=== PATIENT | female | born 1965 | race Caucasian/White ===

== ENCOUNTER → 2017-09-25 | Outpatient (CLI) | payer OTHER ==
--- NOTE | 2017-09-25 22:21 | Diagnostic Imaging Report ---
Renal Scan Reason for exam: Hydronephrosis; chronic kidney disease. 52 F with cervical cancer dx in 2017 s/p chemoXRT. 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 Bilateral PCN's recently placed. Radiopharmaceutical: Tc-99m MAG3 10.5 mCi Report: After administration of the radiopharmaceutical, dynamic images of the kidneys were obtained through 40 minutes. The PCN catheters were open for the initial 10 minutes post injection of tracer and then clamped for the remainder of the study. LEFT KIDNEY: Perfusion is prompt. The left kidney has a reniform shape with irregular contours. Extraction of tracer from the blood pool is normal. Clearance of tracer from the renal parenchyma begins promptly but is not complete by the end of the study. The pelvicaliceal system is not dilated. No increased pooling of tracer is seen in the pelvicalyceal system. The PCN catheter drains the kidney adequately over the first 10 minutes. The pelvicalyceal system drains freely after the PCN is clamped. No stasis of tracer is seen in the left ureter. RIGHT KIDNEY: Perfusion is prompt. The kidney has a reniform shape with slightly irregular contours. Extraction of tracer from the blood pool is normal. Clearance of tracer from the renal parenchyma begins promptly but is not complete by the end of the study. The pelvicaliceal system is not dilated although the calices are mildly prominent. The PCN catheter drains the kidney adequately over the initial 10 minutes. Tracer in the pelvicalyceal system accumulates continuously during the 30 minutes following clamping of the PCN. No stasis of tracer is seen in the right ureter. DIFFERENTIAL RENAL FUNCTION: Left kidney 48% and right kidney 52% (normal 43-57%). Impression: 1. The left kidney has evidence of medical renal disease. Some scarring is present evidenced by the irregular contour. No hydronephrosis is present. The PCN adequately drains the pelvicalyceal system. After the PCN is clamped, drainage of tracer in the renal collecting system is unimpeded. 2. The right kidney has evidence of medical renal disease as well as some scarring. No hydronephrosis is present although the calices are very mildly prominent. The PCN adequately drains the pelvicalyceal system over the initial 10 minutes. After the PCN is clamped, tracer continuously accumulates in the pelvicalyceal system, suggestive of obstruction at the UPJ. Tracer is seen in the right ureter although the ureter does not appear dilated. Consider Lasix washout renal scan with PCN clamped prior to removing the PCN catheter. 3. The differential renal function is preserved although both kidneys show mild scarring and medical renal disease. Signed by: Dr. Grecia Faith M.D. on 09/25/2017 10:17 PM
== END ==
LOC: NM 11:30
PROVIDERS: ATTEND Urology
CPT/HCPCS: 78707; A9562

== ENCOUNTER 2017-10-11 11:27 | Inpatient (IN) | payer OTHER ==
[2017-10-10 11:23] LABS: EOSINOPHILS # (AUTO) 0.5 (0.0-0.4); EOSINOPHILS % 22.4 % (0.0-6.0); HEMATOCRIT 29.4 % (34.2-44.1); HEMOGLOBIN 9.2 g/dL (12.0-16.0); LYMPHOCYTES # (AUTO) 0.9 (1.0-3.2); LYMPHOCYTES % 46.3 % (18.0-39.1); MEAN CORPUSCULAR HEMOGLOBIN 27.1 pg (28-32); MEAN CORPUSCULAR HGB CONC 31.3 g/dL (31-35); MEAN CORPUSCULAR VOLUME 86.7 fL (81-99); MONOCYTES # (AUTO) 0.4 (0.2-0.8); MONOCYTES % 19.4 % (4.4-11.3); NEUTROPHILS # (AUTO) 0.2 (2.1-6.9); NEUTROPHILS % 9.9 % (38.7-80.0); PLATELET COUNT 299 x10e3/uL (140-360); RED BLOOD COUNT 3.39 x10e6/uL (3.6-5.1); RED CELL DISTRIBUTION WIDTH 15.9 % (11.7-14.4)
[2017-10-10 11:40] LABS: ANION GAP 11.4 mmol/L (8-16); BLOOD UREA NITROGEN 11 mg/dL (7-26); BUN/CREATININE RATIO 15 (6-25); CALCIUM 9.3 mg/dL (8.4-10.2); CARBON DIOXIDE 26 mmol/L (22-29); CHLORIDE 104 mmol/L (98-107); CREATININE, SERUM 0.73 mg/dL (0.57-1.11); EST GLOMERULAR FILTRATION RATE > 60 ML/MIN (60-); GLUCOSE 118 mg/dL (74-118); POTASSIUM 3.4 mmol/L (3.5-5.1); SODIUM 138 mmol/L (136-145)
--- NOTE | 2017-10-10 12:06 | Diagnostic Imaging Report ---
PROCEDURE: X-RAY CHEST, TWO VIEWS COMPARISON: None. INDICATIONS: PRE-OP. SHORTNESS OF BREATH FINDINGS: Right internal jugular central venous port catheter tip projects over the low superior vena cava. Lungs are well-inflated and without focal airspace consolidation, pleural effusion, or pneumothorax. Questionable nodular opacity projecting to the right of the vertebral column on the frontal radiograph and over the T11 vertebral body on the lateral radiograph. Mild tortuosity of the thoracic aorta with an otherwise normal cardiomediastinal contour. No acute osseous abnormality. CONCLUSION: No acute thoracic abnormality. Questionable nodular opacity in the medial aspect of the right lower lobe. Comparison with prior chest radiographs, if available, would be useful. If no prior studies are available, short term followup chest radiograph (1-2 months) is suggested. Alternatively, CT scan of the chest may be performed. Dictated by: Mahesh Henry M.D. on 10/10/2017 at 12:08 Electronically approved by: Mahesh Henry M.D. on 10/10/2017 at 12:08
[2017-10-10 14:48] LABS: EOSINOPHILS % (MANUAL) 20 % (0-7); LYMPHOCYTES % (MANUAL) 50 % (19-48); MONOCYTES % (MANUAL) 14 % (3.4-9.0); NEUTROPHILS % (MANUAL) 11 % (40-74)
[2017-10-10 14:49] LABS: ANISOCYTOSIS SLIGHT; HYPOCHROMASIA SLIGHT; PLATELET ESTIMATE ADEQUATE; PLATELET MORPHOLOGY COMMENT FEW LARGE; RBC MORPHOLOGY COMMENT NORMAL
[~2017-10-11] VITALS: Ht 175.3 cm; Wt 67.6 kg
[~2017-10-11 11:27] MED LIST: GABAPENTIN300 MG PO; MORPHINE SULFAT60 M2 PO; NORCO 10-325 T1 EACH PO; PROAIR HFA INH8.5 GM INH; ZOFRAN ODT8 MG PO
--- OUTSIDE RECORDS SUMMARY | 2017-10-11 11:30 | XMS REPORT ---
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 Allergies, Adverse Reactions, Alerts This patient has no known allergies or adverse reactions. Medications This patient has no known medications. Encounters Start Date/Time End Date/Time Encounter Type Admission Type Attending [facility] Care Department Encounter ID 2017-09-03 00:01:00 2017-09-03 00:01:00 Outpatient [facility] [id number] 2017-08-26 14:22:00 2017-08-26 14:22:00 Inpatient [facility] [id number] 2017-03-06 00:01:00 2017-03-06 00:01:00 Outpatient [facility] [id number] 2017-02-03 00:01:00 2017-02-03 00:01:00 Outpatient [facility] [id number] 2016-11-21 16:05:00 2016-11-21 16:05:00 Inpatient [facility] [id number] Results Test Description Test Time Test Comments Text Results Atomic Results Result Comments CHEST 2 VIEWS 2017-10-10 12:08:00 [place] [address] Patient Name: MAHIN WEBER MR #: [id number] : 1965 Age/Sex: 52/F Req #: [id number] Adm Physician: Ordered by: KEN ALMAGUER MD Report #: [id number] Location: OR Room/Bed: Procedure: [id number] DX/CHEST 2 VIEWS Exam Date: 10/10/17 Exam Time: 1145 REPORT STATUS: Signed PROCEDURE: X-RAY CHEST, TWO VIEWS COMPARISON: None. INDICATIONS: PRE-OP. SHORTNESS OF BREATH FINDINGS: Right internal jugular central venous port catheter tip projects over the low superior vena cava. Lungs are well-inflated and without focal airspace consolidation, pleural effusion, or pneumothorax. Questionable nodular opacity projecting to the right of the vertebral column on the frontal radiograph and over the T11 vertebral body on the lateral radiograph. Mild tortuosity of the thoracic aorta with an otherwise normal cardiomediastinal contour. No acute osseous abnormality. CONCLUSION: No acute thoracic abnormality. Questionable nodular opacity in the medial aspect of the right lower lobe. Comparison with prior chest radiographs, if available, would be useful. If no prior studies are available, short term followup chest radiograph (1-2 months) is suggested. Alternatively, CT scan of the chest may be performed. Dictated by: Pam Caballero M.D. on 10/10/2017 at 12:08 Electronically approved by: Pam Caballero M.D. on 10/10/2017 at 12:08 Dictated By: PAM CABALLERO MD 1208 Transcribed By: RADHA on 10/10/17 1208 COPY TO: KEN ALMAGUER MD RBC, Crossmatch 2 2017-01-15 04:47:00 Product 1 Code (test code=PRODCODE1) E0336 Unit 1 ID (test code=UNITID1) [id number] Unit 1 ABO (test code=UNITABO1) O Unit 1 Rh (test code=UNITRH1) POS Unit 1 Interp (test code=UNITINTERP1) Compatible Unit 1 Status (test code=UNITSTAT1) RE Product 2 Code (test code=PRODCODE2) E0336 Unit 2 ID (test code=UNITID2) [id number] Unit 2 ABO (test code=UNITABO2) O Unit 2 Rh (test code=UNITRH2) POS Unit 2 Interp (test code=UNITINTERP2) Compatible Unit 2 Status (test code=UNITSTAT2) RE US GUIDANCE [id number] 08:49:12ULTRASOUND GUIDANCECLINICAL HISTORY : C53.9: MALIGNANT NEOPLASM OF CERVIX UTERI, UNSPECIFIEDComments: Intraoperative ultrasound services were provided during tandemplacement. A radiologist was not present for the procedure. A total of9 images were acquired by the nanotechnology engineering technologist.IMPRESSION: Ultrasound services provided. Please see separate operative report fordetailed findings.LOCATION: V53Ewaevqcz Screen - Rdyfzfdy4350-25-45 08:10:00* Test Item Value Reference Range Comments Antibody Screen (test code=ABSCR) Negative Partial Thromboplastin [id number] 08:09:00* Test Item Value Reference Range Comments aPTT (test code=PTT) 32.20 seconds 24.39-37.25 Blood Type and [id number] 08:07:00* Test Item Value Reference Range Comments ABO type (test code=ABO) O Rh Type (test code=RH) Positive Comprehensive Metabolic Jekww7969-94-28 07:38:00* Test Item Value Reference Range Comments Sodium (test code=NA) 141 mmol/L 135-145 Potassium (test code=K) 4.9 mmol/L 3.5-5.1 Chloride (test code=CL) 107 mmol/L 98-105 Carbon Dioxide (test code=CO2) 26 mmol/L 22-29 Glucose (test code=GLU) 97 mg/dL 70-115 Blood Urea Nitrogen (test code=BUN) 11 mg/dL 6-20 Creatinine (test code=CREAT) 0.7 mg/dL 0.5-0.9 Calcium (test code=CA) 9.2 mg/dL 8.3-10.5 Prot Total (test code=TP) 6.5 g/dL 6.4-8.3 Albumin (test code=ALB) 4.1 g/dL 3.5-5.2 A/G Ratio (test code=AGRATIO) 1.7 Ratio Globulin (test code=GLOB) 2.4 2.9-3.1 Bili Total (test code=TBIL) 0.2 mg/dL 0.1-0.9 Alk Phos (test code=APHOS) 69 U/L 35-104 AST (test code=AST) 13 U/L 1-32 ALT (test code=ALT) 14 U/L 1-33 BUN/Creatinine Ratio (test code=BCRATIO) 15.7 Anion Gap (test code=AGAP) 8 mmol/L 7-16 Estimated GFR (test code=GFR) >60 mL/min/1.73m2 eGFR (estimated Glomerular Filtration Rate) is an estimated value,calculated from the patient's serum creatinine using the MDRD equation.It is NOT the patient's actual GFR. The eGFR provides a more clinicallyuseful measure of kidney disease than serum creatinine alone.This calculation takes sex and race into account, if the informationis provided. If the race is not provided, and the patient isAfrican- Sudanese, multiply by 1.212. If sex is not provided, and thepatient is female, multiply by 0.742. Results for patients <18 years ofage have not been validated by the MDRD study and should be interpretedwith caution.eGFR Result Interpretation:eGFR > or=60 is in the Normal RangeeGFR < 60 may mean kidney diseaseeGFR < 15 may mean kidney failureRanges recommended by the National Kidney Foundation,http://nkdep.nih.gov Jdvvcagvwb6263-06-27 07:35:00* Test Item Value Reference Range Comments Phosphorus (test code=PO4) 4.6 mg/dL 2.70-4.50 Magnesium, Yvwve1050-42-30 07:35:00* Test Item Value Reference Range Comments Magnesium (test code=MG) 2.3 mg/dL 1.7-2.5 CBC with Zqxoowqeniua5620-76-40 07:30:00* Test Item Value Reference Range Comments WBC (test code=WBC) 6.4 K/cumm 4.4-10.5 RBC (test code=RBC) 2.93 M/cumm 3.75-5.20 Hemoglobin (test code=HGB) 10.9 gm/dL 12.2-14.8 Hematocrit (test code=HCT) 31.6 % 36.5-44.4 MCV (test code=MCV) 107.6 fL 80-100 MCH (test code=MCH) 37.1 pg 27.0-32.5 MCHC (test code=MCHC) 34.5 g/dL 32.0-37.5 RDW (test code=RDW) 15.1 % 11.5-14.5 Platelet Count (test code=PLTCT) 361 K/cumm 140-440 MPV (test code=MPV) 7.8 fL Diff Method (test code=DIFFM) Auto Neutrophil (test code=NEUT) 73.6 % 36-70 Lymphocyte (test code=LYMPH) 10.9 % 12-44 Monocyte (test code=MONO) 7.4 % 0-11 Eosinophil (test code=EOS) 7.5 % 0-7 Basophil (test code=BASO) 0.6 % 0-2 Neutro Abs (test code=ANEUT) 4.7 K/cumm 1.6-7.4 Lymph Abs (test code=ALYMPH) 0.7 K/cumm 0.5-4.6 [place] Abs (test code=AMONO) 0.5 K/cumm 0.0-1.2 Eos Abs (test code=AEOS) 0.48 K/cumm 0.00-0.74 Baso Abs (test code=ABASO) 0.0 K/cumm 0.00-0.21 Macrocytosis (test code=MACRO) Slight US GUIDANCE [id number] 09:06:54Ultrasound Assistance:LOCATION: [id number]: C53.9: MALIGNANT NEOPLASM OF CERVIX UTERI, UNSPECIFIEDDISCUSSION: Ultrasound assistance was provided. Intraprocedural images wereinterpreted by the performing physician. Please refer to the referringphysician's procedure note/operative report for complete detail. [id number] 08:44:00* Test Item Value Reference Range Comments Phosphorus (test code=PO4) 4.2 mg/dL 2.70-4.50 Magnesium, Lmfat2016-13-58 08:44:00* Test Item Value Reference Range Comments Magnesium (test code=MG) 2.3 mg/dL 1.7-2.5 Antibody Screen - [id number] 08:21:00* Test Item Value Reference Range Comments Antibody Screen (test code=ABSCR) Negative Blood Type and [id number] 08:03:00* Test Item Value Reference Range Comments ABO type (test code=ABO) O Rh Type (test code=RH) Positive CBC with [id number] 07:30:00* Test Item Value Reference Range Comments WBC (test code=WBC) 4.2 K/cumm 4.4-10.5 RBC (test code=RBC) 3.10 M/cumm 3.75-5.20 Hemoglobin (test code=HGB) 10.8 gm/dL 12.2-14.8 Hematocrit (test code=HCT) 33.4 % 36.5-44.4 MCV (test code=MCV) 107.8 fL 80-100 MCH (test code=MCH) 34.9 pg 27.0-32.5 MCHC (test code=MCHC) 32.4 g/dL 32.0-37.5 RDW (test code=RDW) 15.1 % 11.5-14.5 Platelet Count (test code=PLTCT) 372 K/cumm 140-440 MPV (test code=MPV) 7.5 fL Diff Method (test code=DIFFM) Auto Neutrophil (test code=NEUT) 67.6 % 36-70 Lymphocyte (test code=LYMPH) 17.0 % 12-44 Monocyte (test code=MONO) 8.2 % 0-11 Eosinophil (test code=EOS) 6.1 % 0-7 Basophil (test code=BASO) 1.0 % 0-2 Neutro Abs (test code=ANEUT) 2.8 K/cumm 1.6-7.4 Lymph Abs (test code=ALYMPH) 0.7 K/cumm 0.5-4.6 [place] Abs (test code=AMONO) 0.3 K/cumm 0.0-1.2 Eos Abs (test code=AEOS) 0.26 K/cumm 0.00-0.74 Baso Abs (test code=ABASO) 0.0 K/cumm 0.00-0.21 Macrocytosis (test code=MACRO) Slight Partial Thromboplastin [id number] 07:27:00* Test Item Value Reference Range Comments aPTT (test code=PTT) 35.00 seconds 24.39-37.25 Comprehensive Metabolic [id number] 07:15:00* Test Item Value Reference Range Comments Sodium (test code=NA) 141 mmol/L 135-145 Potassium (test code=K) 4.2 mmol/L 3.5-5.1 Chloride (test code=CL) 109 mmol/L 98-105 Carbon Dioxide (test code=CO2) 25 mmol/L 22-29 Glucose (test code=GLU) 101 mg/dL 70-115 Blood Urea Nitrogen (test code=BUN) 10 mg/dL 6-20 Creatinine (test code=CREAT) 0.7 mg/dL 0.5-0.9 Calcium (test code=CA) 8.9 mg/dL 8.3-10.5 Prot Total (test code=TP) 6.3 g/dL 6.4-8.3 Albumin (test code=ALB) 3.8 g/dL 3.5-5.2 A/G Ratio (test code=AGRATIO) 1.5 Ratio Globulin (test code=GLOB) 2.5 2.9-3.1 Bili Total (test code=TBIL) 0.2 mg/dL 0.1-0.9 Alk Phos (test code=APHOS) 66 U/L 35-104 AST (test code=AST) 13 U/L 1-32 ALT (test code=ALT) 13 U/L 1-33 BUN/Creatinine Ratio (test code=BCRATIO) 14.3 Anion Gap (test code=AGAP) 7 mmol/L 7-16 Estimated GFR (test code=GFR) >60 mL/min/1.73m2 eGFR (estimated Glomerular Filtration Rate) is an estimated value,calculated from the patient's serum creatinine using the MDRD equation.It is NOT the patient's actual GFR. The eGFR provides a more clinicallyuseful measure of kidney disease than serum creatinine alone.This calculation takes sex and race into account, if the informationis provided. If the race is not provided, and the patient isAfrican- Sudanese, multiply by 1.212. If sex is not provided, and thepatient is female, multiply by 0.742. Results for patients <18 years ofage have not been validated by the MDRD study and should be interpretedwith caution.eGFR Result Interpretation:eGFR > or=60 is in the Normal RangeeGFR < 60 may mean kidney diseaseeGFR < 15 may mean kidney failureRanges recommended by the National Kidney Foundation,http://nkdep.nih.gov RBC, Crossmatch [id number] 00:58:00* Test Item Value Reference Range Comments Product 1 Code (test code=PRODCODE1) E4543 Unit 1 ID (test code=UNITID1) [id number] Unit 1 ABO (test code=UNITABO1) O Unit 1 Rh (test code=UNITRH1) POS Unit 1 Interp (test code=UNITINTERP1) Compatible Unit 1 Status (test code=UNITSTAT1) RE Product 2 Code (test code=PRODCODE2) E0336 Unit 2 ID (test code=UNITID2) [id number] Unit 2 ABO (test code=UNITABO2) O Unit 2 Rh (test code=UNITRH2) POS Unit 2 Interp (test code=UNITINTERP2) Compatible Unit 2 Status (test code=UNITSTAT2) RE US GUIDANCE [id number] 11:24:42EXAM: ULTRASOUND GUIDANCECLINICAL HISTORY: Cervical cancerTECHNIQUE: Ultrasound guidance was provided for tandem placement.FINDINGS: Ultrasound guidance was provided for tandem placement.IMPRESSION: Ultrasound guidance was provided for tandem placement.LOCATION: R05Ynije Type and [id number] 08:33:00* Test Item Value Reference Range Comments ABO type (test code=ABO) O Rh Type (test code=RH) Positive Antibody Screen - [id number] 08:33:00* Test Item Value Reference Range Comments Antibody Screen (test code=ABSCR) Negative Partial Thromboplastin [id number] 07:48:00* Test Item Value Reference Range Comments aPTT (test code=PTT) 31.90 seconds 24.39-37.25 CBC with Uefdzzrnuljc4204-01-32 07:36:00* Test Item Value Reference Range Comments WBC (test code=WBC) 3.8 K/cumm 4.4-10.5 RBC (test code=RBC) 2.78 M/cumm 3.75-5.20 Hemoglobin (test code=HGB) 9.8 gm/dL 12.2-14.8 Hematocrit (test code=HCT) 29.5 % 36.5-44.4 MCV (test code=MCV) 106.2 fL 80-100 MCH (test code=MCH) 35.4 pg 27.0-32.5 MCHC (test code=MCHC) 33.3 g/dL 32.0-37.5 RDW (test code=RDW) 15.1 % 11.5-14.5 Platelet Count (test code=PLTCT) 370 K/cumm 140-440 MPV (test code=MPV) 8.1 fL Diff Method (test code=DIFFM) Auto Neutrophil (test code=NEUT) 70.8 % 36-70 Lymphocyte (test code=LYMPH) 16.5 % 12-44 Monocyte (test code=MONO) 8.0 % 0-11 Eosinophil (test code=EOS) 4.2 % 0-7 Basophil (test code=BASO) 0.6 % 0-2 Neutro Abs (test code=ANEUT) 2.7 K/cumm 1.6-7.4 Lymph Abs (test code=ALYMPH) 0.6 K/cumm 0.5-4.6 [place] Abs (test code=AMONO) 0.3 K/cumm 0.0-1.2 Eos Abs (test code=AEOS) 0.16 K/cumm 0.00-0.74 Baso Abs (test code=ABASO) 0.0 K/cumm 0.00-0.21 Macrocytosis (test code=MACRO) Slight Comprehensive Metabolic [id number] 07:22:00* Test Item Value Reference Range Comments Sodium (test code=NA) 140 mmol/L 135-145 Potassium (test code=K) 3.6 mmol/L 3.5-5.1 Chloride (test code=CL) 107 mmol/L 98-105 Carbon Dioxide (test code=CO2) 22 mmol/L 22-29 Glucose (test code=GLU) 99 mg/dL 70-115 Blood Urea Nitrogen (test code=BUN) 10 mg/dL 6-20 Creatinine (test code=CREAT) 0.6 mg/dL 0.5-0.9 Calcium (test code=CA) 9.1 mg/dL 8.3-10.5 Prot Total (test code=TP) 6.3 g/dL 6.4-8.3 Albumin (test code=ALB) 4.1 g/dL 3.5-5.2 A/G Ratio (test code=AGRATIO) 1.9 Ratio Globulin (test code=GLOB) 2.2 2.9-3.1 Bili Total (test code=TBIL) 0.2 mg/dL 0.1-0.9 Alk Phos (test code=APHOS) 69 U/L 35-104 AST (test code=AST) 15 U/L 1-32 ALT (test code=ALT) 14 U/L 1-33 BUN/Creatinine Ratio (test code=BCRATIO) 16.7 Anion Gap (test code=AGAP) 11 mmol/L 7-16 Estimated GFR (test code=GFR) >60 mL/min/1.73m2 eGFR (estimated Glomerular Filtration Rate) is an estimated value,calculated from the patient's serum creatinine using the MDRD equation.It is NOT the patient's actual GFR. The eGFR provides a more clinicallyuseful measure of kidney disease than serum creatinine alone.This calculation takes sex and race into account, if the informationis provided. If the race is not provided, and the patient isAfrican- Sudanese, multiply by 1.212. If sex is not provided, and thepatient is female, multiply by 0.742. Results for patients <18 years ofage have not been validated by the MDRD study and should be interpretedwith caution.eGFR Result Interpretation:eGFR > or=60 is in the Normal RangeeGFR < 60 may mean kidney diseaseeGFR < 15 may mean kidney failureRanges recommended by the National Kidney Foundation,http://nkdep.nih.gov Magnesium, Ppeth0984-43-47 07:21:00* Test Item Value Reference Range Comments Magnesium (test code=MG) 2.1 mg/dL 1.7-2.5 Ztplwebztj5768-82-27 07:21:00* Test Item Value Reference Range Comments Phosphorus (test code=PO4) 4.2 mg/dL 2.70-4.50 CBC with Jhomvjkgyinv7154-20-34 13:20:00* Test Item Value Reference Range Comments WBC (test code=WBC) 1.7 K/cumm 4.4-10.5 RBC (test code=RBC) 2.88 M/cumm 3.75-5.20 Hemoglobin (test code=HGB) 10.1 gm/dL 12.2-14.8 Hematocrit (test code=HCT) 31.5 % 36.5-44.4 MCV (test code=MCV) 109.5 fL 80-100 MCH (test code=MCH) 35.1 pg 27.0-32.5 MCHC (test code=MCHC) 32.0 g/dL 32.0-37.5 RDW (test code=RDW) 15.9 % 11.5-14.5 Platelet Count (test code=PLTCT) 337 K/cumm 140-440 MPV (test code=MPV) 9.3 fL Diff Method (test code=DIFFM) Manual Neutrophil (test code=NEUT) 47.8 % 36-70 Lymphocyte (test code=LYMPH) 32.5 % 12-44 Monocyte (test code=MONO) 12.3 % 0-11 Eosinophil (test code=EOS) 6.6 % 0-7 Basophil (test code=BASO) 0.8 % 0-2 Neutro Abs (test code=ANEUT) 0.8 K/cumm 1.6-7.4 Lymph Abs (test code=ALYMPH) 0.6 K/cumm 0.5-4.6 [place] Abs (test code=AMONO) 0.2 K/cumm 0.0-1.2 Eos Abs (test code=AEOS) 0.11 K/cumm 0.00-0.74 Baso Abs (test code=ABASO) 0.0 K/cumm 0.00-0.21 RBC Morphology (test code=RBCMRPH) Moderate Hypochromia Moderate Macrocytosis WBC Morphology (test code=WBCMRPH) Moderate Toxic Granulation Platelet Est (test code=PLTEST) Normal Platelet on Smear Antibody Screen - Bxtksybk3272-30-07 12:03:00* Test Item Value Reference Range Comments Antibody Screen (test code=ABSCR) Negative Tddpvvlazv3442-73-95 11:45:00* Test Item Value Reference Range Comments Phosphorus (test code=PO4) 3.9 mg/dL 2.70-4.50 Magnesium, Zqype7512-91-79 11:45:00* Test Item Value Reference Range Comments Magnesium (test code=MG) 2.3 mg/dL 1.7-2.5 Comprehensive Metabolic [id number] 11:45:00* Test Item Value Reference Range Comments Sodium (test code=NA) 140 mmol/L 135-145 Potassium (test code=K) 4.5 mmol/L 3.5-5.1 Chloride (test code=CL) 104 mmol/L 98-105 Carbon Dioxide (test code=CO2) 27 mmol/L 22-29 Glucose (test code=GLU) 89 mg/dL 70-115 Blood Urea Nitrogen (test code=BUN) 9 mg/dL 6-20 Creatinine (test code=CREAT) 0.7 mg/dL 0.5-0.9 Calcium (test code=CA) 9.1 mg/dL 8.3-10.5 Prot Total (test code=TP) 6.5 g/dL 6.4-8.3 Albumin (test code=ALB) 4.1 g/dL 3.5-5.2 A/G Ratio (test code=AGRATIO) 1.7 Ratio Globulin (test code=GLOB) 2.4 2.9-3.1 Bili Total (test code=TBIL) 0.2 mg/dL 0.1-0.9 Alk Phos (test code=APHOS) 64 U/L 35-104 AST (test code=AST) 12 U/L 1-32 ALT (test code=ALT) 11 U/L 1-33 BUN/Creatinine Ratio (test code=BCRATIO) 12.9 Anion Gap (test code=AGAP) 9 mmol/L 7-16 Estimated GFR (test code=GFR) >60 mL/min/1.73m2 eGFR (estimated Glomerular Filtration Rate) is an estimated value,calculated from the patient's serum creatinine using the MDRD equation.It is NOT the patient's actual GFR. The eGFR provides a more clinicallyuseful measure of kidney disease than serum creatinine alone.This calculation takes sex and race into account, if the informationis provided. If the race is not provided, and the patient isAfrican- Sudanese, multiply by 1.212. If sex is not provided, and thepatient is female, multiply by 0.742. Results for patients <18 years ofage have not been validated by the MDRD study and should be interpretedwith caution.eGFR Result Interpretation:eGFR > or=60 is in the Normal RangeeGFR < 60 may mean kidney diseaseeGFR < 15 may mean kidney failureRanges recommended by the National Kidney Foundation,http://nkdep.nih.gov Blood Type and [id number] 11:28:00* Test Item Value Reference Range Comments ABO type (test code=ABO) O Rh Type (test code=RH) Positive Prothrombin [id number] 11:16:00* Test Item Value Reference Range Comments PT (test code=PT) 10.90 seconds 9.78-13.35 INR (test code=INR) 0.96 Ratio 0.6-1.2 Partial Thromboplastin [id number] 11:16:00* Test Item Value Reference Range Comments aPTT (test code=PTT) 32.10 seconds 24.39-37.25 US GUIDANCE [id number] 12:36:36EXAM: ULTRASOUND GUIDANCECLINICAL HISTORY: Cervical cancerTECHNIQUE: Ultrasound guidance was provided for tandem placement.FINDINGS: Ultrasound guidance was provided for tandem placement.IMPRESSION: Ultrasound guidance was provided for tandem placement.LOCATION: [facility] with Izkeefevjafa9151-11-50 10:50:00* Test Item Value Reference Range Comments WBC (test code=WBC) 1.6 K/cumm 4.4-10.5 RBC (test code=RBC) 2.89 M/cumm 3.75-5.20 Hemoglobin (test code=HGB) 10.3 gm/dL 12.2-14.8 Hematocrit (test code=HCT) 31.8 % 36.5-44.4 MCV (test code=MCV) 110.1 fL 80-100 MCH (test code=MCH) 35.7 pg 27.0-32.5 MCHC (test code=MCHC) 32.5 g/dL 32.0-37.5 RDW (test code=RDW) 15.8 % 11.5-14.5 Platelet Count (test code=PLTCT) 296 K/cumm 140-440 MPV (test code=MPV) 9.1 fL Diff Method (test code=DIFFM) Manual Neutrophil (test code=NEUT) 40.6 % 36-70 Lymphocyte (test code=LYMPH) 30.8 % 12-44 Monocyte (test code=MONO) 14.0 % 0-11 Eosinophil (test code=EOS) 14.3 % 0-7 Basophil (test code=BASO) 0.3 % 0-2 Neutro Abs (test code=ANEUT) 0.6 K/cumm 1.6-7.4 Lymph Abs (test code=ALYMPH) 0.5 K/cumm 0.5-4.6 [place] Abs (test code=AMONO) 0.2 K/cumm 0.0-1.2 Eos Abs (test code=AEOS) 0.22 K/cumm 0.00-0.74 Baso Abs (test code=ABASO) 0.0 K/cumm 0.00-0.21 RBC Morphology (test code=RBCMRPH) Moderate Hypochromia Platelet Est (test code=PLTEST) Normal Platelet on Smear [id number] 08:47:00* Test Item Value Reference Range Comments Potassium (test code=K) 4.5 mmol/L 3.5-5.1 Partial Thromboplastin [id number] 08:02:00* Test Item Value Reference Range Comments aPTT (test code=PTT) 47.90 seconds 24.39-37.25 Antibody Screen - Huvtlaaf7919-33-11 07:40:00* Test Item Value Reference Range Comments Antibody Screen (test code=ABSCR) Negative Blood Type and [id number] 07:39:00* Test Item Value Reference Range Comments ABO type (test code=ABO) O Rh Type (test code=RH) Positive Comprehensive Metabolic [id number] 07:34:00* Test Item Value Reference Range Comments Sodium (test code=NA) 139 mmol/L 135-145 Potassium (test code=K) 5.4 mmol/L 3.5-5.1 HEMOLYZED Chloride (test code=CL) 107 mmol/L 98-105 Carbon Dioxide (test code=CO2) 23 mmol/L 22-29 Glucose (test code=GLU) 102 mg/dL 70-115 Blood Urea Nitrogen (test code=BUN) 9 mg/dL 6-20 Creatinine (test code=CREAT) 0.6 mg/dL 0.5-0.9 Calcium (test code=CA) 8.9 mg/dL 8.3-10.5 Prot Total (test code=TP) 6.9 g/dL 6.4-8.3 Albumin (test code=ALB) 4.0 g/dL 3.5-5.2 A/G Ratio (test code=AGRATIO) 1.4 Ratio Globulin (test code=GLOB) 2.9 2.9-3.1 Bili Total (test code=TBIL) 0.2 mg/dL 0.1-0.9 Alk Phos (test code=APHOS) 62 U/L 35-104 AST (test code=AST) 29 U/L 1-32 HEMOLYZED ALT (test code=ALT) 12 U/L 1-33 BUN/Creatinine Ratio (test code=BCRATIO) 15.0 Anion Gap (test code=AGAP) 9 mmol/L 7-16 Estimated GFR (test code=GFR) >60 mL/min/1.73m2 eGFR (estimated Glomerular Filtration Rate) is an estimated value,calculated from the patient's serum creatinine using the MDRD equation.It is NOT the patient's actual GFR. The eGFR provides a more clinicallyuseful measure of kidney disease than serum creatinine alone.This calculation takes sex and race into account, if the informationis provided. If the race is not provided, and the patient isAfrican- Sudanese, multiply by 1.212. If sex is not provided, and thepatient is female, multiply by 0.742. Results for patients <18 years ofage have not been validated by the MDRD study and should be interpretedwith caution.eGFR Result Interpretation:eGFR > or=60 is in the Normal RangeeGFR < 60 may mean kidney diseaseeGFR < 15 may mean kidney failureRanges recommended by the National Kidney Foundation,http://nkdep.nih.gov XR CHEST 1 [id number] 06:36:13Chest, one viewLOCATION CODE: R 16HISTORY: PreoperativeCOMPARISON: NoneFINDINGS:A right chemotherapy port is noted with tip in the SVC.The heart size isnormal and the lungs are clear. There is no evidence of pleuraleffusion, pulmonary edema or patchy lobar consolidation.IMPRESSION: 1. No acute cardiopulmonary disease RBC, Crossmatch 00:09:00* Test Item Value Reference Range Comments Product 1 Code (test code=PRODCODE1) E4533 Unit 1 ID (test code=UNITID1) [id number] Unit 1 ABO (test code=UNITABO1) O Unit 1 Rh (test code=UNITRH1) POS Unit 1 Interp (test code=UNITINTERP1) Compatible Unit 1 Status (test code=UNITSTAT1) RE Product 2 Code (test code=PRODCODE2) E4533 Unit 2 ID (test code=UNITID2) [id number] Unit 2 ABO (test code=UNITABO2) O Unit 2 Rh (test code=UNITRH2) POS Unit 2 Interp (test code=UNITINTERP2) Compatible Unit 2 Status (test code=UNITSTAT2) RE Antibody Screen - [id number] 13:27:00* Test Item Value Reference Range Comments Antibody Screen (test code=ABSCR) Negative CBC with [id number] 13:14:00* Test Item Value Reference Range Comments WBC (test code=WBC) 1.5 K/cumm 4.4-10.5 RBC (test code=RBC) 2.81 M/cumm 3.75-5.20 Hemoglobin (test code=HGB) 10.1 gm/dL 12.2-14.8 Hematocrit (test code=HCT) 30.0 % 36.5-44.4 MCV (test code=MCV) 106.8 fL 80-100 MCH (test code=MCH) 35.9 pg 27.0-32.5 MCHC (test code=MCHC) 33.6 g/dL 32.0-37.5 RDW (test code=RDW) 14.9 % 11.5-14.5 Platelet Count (test code=PLTCT) 296 K/cumm 140-440 MPV (test code=MPV) 8.4 fL Diff Method (test code=DIFFM) Manual Neutrophil (test code=NEUT) 48.8 % 36-70 Lymphocyte (test code=LYMPH) 28.9 % 12-44 Monocyte (test code=MONO) 8.8 % 0-11 Eosinophil (test code=EOS) 13.2 % 0-7 Basophil (test code=BASO) 0.2 % 0-2 Neutro Abs (test code=ANEUT) 0.7 K/cumm 1.6-7.4 Lymph Abs (test code=ALYMPH) 0.4 K/cumm 0.5-4.6 [place] Abs (test code=AMONO) 0.1 K/cumm 0.0-1.2 Eos Abs (test code=AEOS) 0.19 K/cumm 0.00-0.74 Baso Abs (test code=ABASO) 0.0 K/cumm 0.00-0.21 RBC Morphology (test code=RBCMRPH) Moderate Hypochromia Platelet Est (test code=PLTEST) Normal Platelet on Smear Blood Type and [id number] 13:11:00* Test Item Value Reference Range Comments ABO type (test code=ABO) O Rh Type (test code=RH) Positive [id number] 12:10:00* Test Item Value Reference Range Comments Phosphorus (test code=PO4) 3.3 mg/dL 2.70-4.50 Magnesium, [id number] 12:10:00* Test Item Value Reference Range Comments Magnesium (test code=MG) 2.1 mg/dL 1.7-2.5 Comprehensive Metabolic [id number] 12:10:00* Test Item Value Reference Range Comments Sodium (test code=NA) 144 mmol/L 135-145 Potassium (test code=K) 4.4 mmol/L 3.5-5.1 Chloride (test code=CL) 107 mmol/L 98-105 Carbon Dioxide (test code=CO2) 27 mmol/L 22-29 Glucose (test code=GLU) 107 mg/dL 70-115 Blood Urea Nitrogen (test code=BUN) 9 mg/dL 6-20 Creatinine (test code=CREAT) 0.6 mg/dL 0.5-0.9 Calcium (test code=CA) 9.3 mg/dL 8.3-10.5 Prot Total (test code=TP) 6.4 g/dL 6.4-8.3 Albumin (test code=ALB) 4.0 g/dL 3.5-5.2 A/G Ratio (test code=AGRATIO) 1.7 Ratio Globulin (test code=GLOB) 2.4 2.9-3.1 Bili Total (test code=TBIL) <0.1 mg/dL 0.1-0.9 Alk Phos (test code=APHOS) 67 U/L 35-104 AST (test code=AST) 11 U/L 1-32 ALT (test code=ALT) 10 U/L 1-33 BUN/Creatinine Ratio (test code=BCRATIO) 15.0 Anion Gap (test code=AGAP) 10 mmol/L 7-16 Estimated GFR (test code=GFR) >60 mL/min/1.73m2 eGFR (estimated Glomerular Filtration Rate) is an estimated value,calculated from the patient's serum creatinine using the MDRD equation.It is NOT the patient's actual GFR. The eGFR provides a more clinicallyuseful measure of kidney disease than serum creatinine alone.This calculation takes sex and race into account, if the informationis provided. If the race is not provided, and the patient isAfrican- Sudanese, multiply by 1.212. If sex is not provided, and thepatient is female, multiply by 0.742. Results for patients <18 years ofage have not been validated by the MDRD study and should be interpretedwith caution.eGFR Result Interpretation:eGFR > or=60 is in the Normal RangeeGFR < 60 may mean kidney diseaseeGFR < 15 may mean kidney failureRanges recommended by the National Kidney Foundation,http://nkdep.nih.gov Partial Thromboplastin [id number] 12:09:00* Test Item Value Reference Range Comments aPTT (test code=PTT) 33.10 seconds 24.39-37.25 Prothrombin [id number] 12:09:00* Test Item Value Reference Range Comments PT (test code=PT) 10.60 seconds 9.78-13.35 INR (test code=INR) 0.94 Ratio 0.6-1.2 RENAL SCAN W/FLOW FUNCTION [place] [address] Patient Name: MAHIN WEBER MR #: [id number] : 1965 Age/Sex: 52/F Req #: [id number] Adm Physician: Ordered by: KNE ALMAGUER MD Report #: [id number] Location: [place] Room/Bed: Procedure: [id number] NM/RENAL SCAN W/FLOW FUNCTION Exam Date: 09/25/17 Exam Time: 1200 REPORT STATUS: Signed Renal Scan Reason for exam: Hydronephrosis; chronic kidney disease. 52 F with cervical cancer dx in 2017 s/p chemoXRT. 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 Bilateral PCN's recently placed. Radiopharmaceutical: Tc-99m MAG3 10.5 mCi Report: After administration of the radiopharmaceutical, dynamic images of the kidneys were obtained through 40 minutes. The PCN catheters were open for the initial 10 minutes post injection of tracer and then clamped for the remainder of the study. LEFT KIDNEY: Perfusion is prompt. The left kidney has a reniform shape with irregular contours. Extraction of tracer from the blood pool is normal. Clearance of tracer from the renal parenchyma begins promptly but is not complete by the end of the study. The pelvicaliceal system is not dilated. No increased pooling of tracer is seen in the pelvicalyceal system. The PCN catheter drains the kidney adequately over the first 10 minutes. The pelvicalyceal system drains freely after the PCN is clamped. No stasis of tracer is seen in the left ureter. RIGHT KIDNEY: Perfusion is prompt. The kidney has a reniform shape with slightly irregular contours. Extraction of tracer from the blood pool is normal. Clearance of tracer from the renal parenchyma begins promptly but is not complete by the end of the study. The pelvicaliceal system is not dilated although the calices are mildly prominent. The PCN catheter drains the kidney adequately over the initial 10 minutes. Tracer in the pelvicalyceal system accumulates continuously during the 30 minutes following clamping of the PCN. No stasis of tracer is seen in the right ureter. DIFFERENTIAL RENAL FUNCTION: Left kidney 48% and right kidney 52% (normal 43-57%). Impression: 1. The left kidney has evidence of medical renal disease. Some scarring is present evidenced by the irregular contour. No hydronephrosis is present. The PCN adequately drains the pelvicalyceal system. After the PCN is clamped, drainage of tracer in the renal collecting system is unimpeded. 2. The right kidney has evidence of medical renal disease as well as some scarring. No hydronephrosis is present although the calices are very mildly prominent. The PCN adequately drains the pelvicalyceal system over the initial 10 minutes. After the PCN is clamped, tracer continuously accumulates in the pelvicalyceal system, suggestive of obstruction at the UPJ. Tracer is seen in the right ureter although the ureter does not appear dilated. Consider Lasix washout renal scan with PCN clamped prior to removing the PCN catheter. 3. The differential renal function is preserved although both kidneys show mild scarring and medical renal disease. Signed by: Dr. Juan Carlos Faith M.D. on 09/25/2017 10:17 PM Dictated By: JUAN CARLOS FAITH MD 16 Transcribed By: MELVIN on 09/25/172216 COPY TO: KEN ALMAGUER MD
--- OUTSIDE RECORDS SUMMARY | 2017-10-11 11:30 | XMS REPORT | Clinical Summary ---
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 Disp. Refills Start End Date Status Date ondansetron (ZOFRAN) 8 MG Take 8 mg by mouth every Active tablet 12 (twelve) hours as needed for nausea or vomiting. ondansetron ODT Take 8 mg by mouth every 0 08/14/19 Active (ZOFRAN-ODT) 8 MG 8 (eight) hours as 18 disintegrating tablet needed. HYDROcodone-acetaminophen TAKE 1 TABLET EVERY 4 0 08/14/19 Active (NORCO) 10-325 mg per HOURS NEEDED FOR PAIN 18 tablet morPHINE (MS CONTIN) 60 Take 60 mg by mouth every 0 08/17/19 Active MG 12 hr tablet 12 (twelve) hours. 18 PREMARIN 0.625 mg/gram 06/04/19 08/23/19 Discontin vaginal cream 18 18 ued phenazopyridine Take 100 mg by mouth 3 06/04/19 08/23/19 Discontin (PYRIDIUM) 100 MG tablet (three) times a day as 18 18 ued needed. PROCTOSOL HC 2.5 % rectal 06/20/19 08/06/19 Discontin cream 18 18 ued promethazine (PHENERGAN) 05/09/19 08/06/19 Discontin 25 MG tablet 18 18 ued ciprofloxacin HCl (CIPRO) Take 2.5 tablets (250 mg 25 tablet 0 08/14/19 100 MG tablet total) by mouth 2 (two) 18 18 times a day for 5 days. 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 Montse Pavel 08/12/2017 Telephone Urology Tony Kimball MD 08/05/2017 [facility] General Surgery Tang Dang Acute renal failure, - Encounter MD Alonzo unspecified acute renal 08/09/2017 Erika La MD failure type (Primary Dx); Hyperkalemia; Anemia, unspecified type; Obstructive uropathy; Respiratory insufficiency; Bilateral hydronephrosis; Malignant neoplasm of cervix, unspecified site; Urinary tract infection without hematuria, site unspecified after 10/10/2016 Social History Tobacco Use Types Packs/Day Years Used Date Current Some Day Smoker Smokeless Tobacco: Never Used Comments: Pt smokes 1-2 cigs weekly Alcohol Use Drinks/Week oz/Week Comments No Sex Assigned at Date Recorded Not on file Last Filed Vital Signs Vital Sign Reading Time Taken Blood Pressure 110/74 09/07/2017 12:00 PM CDT Pulse 89 09/07/2017 12:00 PM CDT Temperature 37 C (98.6 F) 09/07/2017 12:00 PM CDT Respiratory Rate 19 09/07/2017 12:00 PM CDT Oxygen Saturation 99% 09/07/2017 12:00 PM CDT Inhaled Oxygen - - Concentration Weight 71.2 kg (157 lb) 08/22/2017 9:44 AM CDT Height 175.3 cm (5' 9") 09/07/2017 9:56 AM CDT Body Mass Index 23.18 08/22/2017 9:44 AM CDT Plan of Treatment Health Maintenance Due Date Last Done Comments CERVICAL CANCER SCREENING 1985 BREAST CANCER SCREENING 2014 COLON CANCER SCREENING 2014 SHINGRIX VACCINE (#1) 2014 INFLUENZA VACCINE 12/04/2017 Implants Implanted Type Area Director International Device Expiration Model / Identifier Date Serial / Lot Catheter Uretl Ultrathane 8.5fr Surgical N/A: N/A COOK 02/13/2020 [id number] / 25cm 6sp Mac-Loc Lkng Loop - Implants; INTERVENTIONAL / [id number] Expanders; RADIOLOGY [id number] Implanted: 08/06/2017 (Quantity not Extenders; on file) Surgical Wires Catheter Uretl Ultrathane 8.5fr Surgical N/A: N/A COOK 02/13/2020 [id number] / 25cm 6sp Mac-Loc Lkng Loop - Implants; INTERVENTIONAL / [id number] Expanders; RADIOLOGY [id number] Implanted: 08/06/2017 (Quantity not Extenders; on file) Surgical Wires Procedures Procedure Name Priority Date/Time Associated Diagnosis Comments [facility] ADDL 30 Routine 08/05/2017 Results for this MIN 4:14 PM CDT procedure are in the results section. [facility], E/M Routine 08/05/2017 Results for this 30-74 MINUTES 4:14 PM CDT procedure are in the results section. after 10/10/2016 Results * Potassium level (08/09/2017 3:02 PM) Component Value Ref Range Potassium 3.6 3.5 - 5.0 mEq/L Specimen Performing Laboratory Plasma specimen [facility] [address] [place] [address] * ECG 12 lead (08/09/2017 10:43 AM) Only the most recent of 3 results within the time period is included. Component Value Ref Range Ventricular rate 116 Atrial rate 116 VA interval 144 QRSD interval 76 QT interval 348 QTC interval 483 P axis 1 62 QRS axis 1 54 T wave axis 200 EKG impression Sinus tachycardia-Minimal voltage criteria for LVH, may be normal variant-ST & T wave abnormality, consider inferolateral ischemia-Abnormal ECG-In automated comparison with ECG of 07-AUG-2017 14:01,-T wave inversion now evident in Inferior leads-T wave inversion now evident in Anterior leads- Specimen Performing Laboratory [facility] MUSE [address] [facility] [facility] [address] * Estimated GFR (08/09/2017 6:10 AM) Only the most recent of 8 results within the time period is included. Component Value Ref Range GFR Non Af Amer 14 (A) mL/min/1.73 m2 GFR Af Amer 17 (A) mL/min/1.73 m2 Comment: Chronic kidney disease: <60 mL/min/1.73m2 Kidney failure: <15 mL/min/1.73m2 The estimated GFR is calculated from the IDMS-traceable Modification of Diet in Renal Disease Equation. The accuracy of the calculation is poor when the creatinine is normal. Calculated values >90 mL/min/1.73m2 are not reported. This equation has not been validated in children (<18 years), women, the elderly (>70 years), or ethnic groups other than Caucasians and Americans. Specimen Performing Laboratory Plasma specimen [facility] [address] [place] [address] * CBC with platelet and differential (08/09/2017 6:10 AM) Only the most recent of 5 results within the time period is included. Component Value Ref Range WBC 11.6 (H) 4.2 - 11.0 k/uL RBC 3.69 (L) 4.04 - 5.86 m/uL HGB 10.4 (L) 11.5 - 15.3 g/dL HCT 33.4 (L) 34.0 - 45.0 % MCV 90.5 80.0 - 98.0 fL MCH 28.2 27.0 - 34.0 pg MCHC 31.1 (L) 31.5 - 36.5 g/dL RDW - SD 54.5 (H) 37.0 - 51.0 fL MPV 9.2 7.4 - 10.4 fL Platelet count 380 150 - 400 k/uL Nucleated RBC 0.00 /100 WBC Neutrophils 80.5 (H) 36.0 - 66.0 % Lymphocytes 7.9 (L) 24.0 - 44.0 % Monocytes 7.2 (H) 0.0 - 6.0 % Eosinophils 3.2 0.0 - 6.0 % Basophils 0.5 0.0 - 1.2 % Immature granulocytes 0.7 0.0 - 1.0 % Specimen Performing Laboratory Blood [facility] [address] [place] [address] * Magnesium level (08/09/2017 6:10 AM) Only the most recent of 4 results within the time period is included. Component Value Ref Range Magnesium 1.10 (L) 1.60 - 2.40 mg/dL Specimen Performing Laboratory Plasma specimen [facility] [address] [place] [address] * Basic metabolic panel (08/09/2017 6:10 AM) Only the most recent of 5 results within the time period is included. Component Value Ref Range Sodium 139 135 - 150 mEq/L Potassium 2.8 (LL) 3.5 - 5.0 mEq/L Comment: Results called to and read back by __Ms Silcox on 3W by tmg 08/09/2017 09:40 Chloride 101 100 - 109 mEq/L CO2 30 24 - 32 mmol/L Anion gap 8 7 - 15 mEq/L Comment: Starting from August , anion gap calculation no longer incorporates potassium. Please note the change. BUN 37 (H) 7 - 18 mg/dL Creatinine 3.4 (H) 0.8 - 1.5 mg/dL Glucose 112 (H) 65 - 100 mg/dL Calcium 7.3 (L) 8.6 - 10.7 mg/dL Specimen Performing Laboratory Plasma specimen [facility] [address] [place] [address] * Phosphorus level (08/08/2017 6:25 AM) Only the most recent of 3 results within the time period is included. Component Value Ref Range Phosphorus 3.9 2.5 - 4.5 mg/dL Specimen Performing Laboratory Plasma specimen [facility] [address] [place] [address] * Ionized calcium (08/08/2017 6:25 AM) Only the most recent of 3 results within the time period is included. Component Value Ref Range pH 7.34 Ionized calcium 0.97 (L) 1.11 - 1.32 mmol/L Specimen Performing Laboratory Plasma specimen [facility] [address] [place] [address] * Comprehensive metabolic panel (08/08/2017 6:25 AM) Only the most recent of 3 results within the time period is included. Component Value Ref Range Sodium 140 135 - 150 mEq/L Potassium 3.7 3.5 - 5.0 mEq/L Chloride 102 100 - 109 mEq/L CO2 28 24 - 32 mmol/L Anion gap 10 7 - 15 mEq/L Comment: Starting from August , anion gap calculation no longer incorporates potassium. Please note the change. BUN 51 (H) 7 - 18 mg/dL Creatinine 5.3 (H) 0.8 - 1.5 mg/dL Glucose 109 (H) 65 - 100 mg/dL Calcium 7.3 (L) 8.6 - 10.7 mg/dL Protein 7.0 6.3 - 8.2 g/dL Albumin 2.8 (L) 3.2 - 5.0 g/dL A/G ratio 0.7 0.7 - 3.8 Alkaline phosphatase 76 30 - 120 U/L AST 11 (L) 15 - 37 U/L ALT 13 (L) 30 - 65 U/L Total bilirubin 0.3 0.2 - 1.2 mg/dL Specimen Performing Laboratory Plasma specimen [facility] [address] [place] [address] * XR Abdomen 1 Vw (08/07/2017 3:29 PM) Specimen Performing Laboratory [facility] [address] [place] [address] Narrative EXAMINATION:XR ABDOMEN 1 VW CLINICAL HISTORY:ABDOMINAL PAIN, CONSTIPATION COMPARISON:None. FINDINGS: There are bilateral nephrostomy catheters. There is gas in the colon. No dilated loops of small bowel are seen. There is no free air. IMPRESSION: As above [facility]-[id number] Procedure Note Interface, Radiology Results Incoming - 08/07/2017 3:41 PM CDT EXAMINATION: XR ABDOMEN 1 VW CLINICAL HISTORY: ABDOMINAL PAIN, CONSTIPATION COMPARISON: None. FINDINGS: There are bilateral nephrostomy catheters. There is gas in the colon. No dilated loops of small bowel are seen. There is no free air. IMPRESSION: As above [id number] * Myoglobin (08/07/2017 2:17 PM) Component Value Ref Range Myoglobin 80.0 9.0 - 82.5 ng/mL Specimen Performing Laboratory Plasma specimen [facility] [address] [place] [address] * CK-MB (08/07/2017 2:17 PM) Component Value Ref Range CK-MB 2.6 0.5 - 3.2 ng/mL Comment: As of Sep 03 2017, this test will no longer be available in [facility]. Specimen Performing Laboratory Plasma specimen [facility] [address] [facility] [place] [address] * Troponin (08/07/2017 2:17 PM) Component Value Ref Range Troponin 0.04 0.00 - 0.60 ng/mL Comment: 0.11 - 1.49 ng/ml May indicate increased risk of acute coronary syndrome. >=1.5 ng/ml Consistent with acute myocardial infarction. The diagnostic value of a single normal or non-diagnostic result is questionable. Serial samples at 2-6 hour intervals are required to rule out acute myocardial injury. Specimen Performing Laboratory Plasma specimen [facility] [address] [place] [address] [place] [address] * POC glucose (08/07/2017 1:51 PM) Only the most recent of 6 results within the time period is included. Component Value Ref Range POC glucose 177 (H) 65 - 100 mg/dL Comment: Meter ID: [id number] Label Rewinder: Elroy Weber Specimen Performing Laboratory [facility] [address] [place] [address] [place] [address] * Smear review (08/07/2017 5:22 AM) Only the most recent of 2 results within the time period is included. Component Value Ref Range Platelet slide review Increased (A) Anisocytosis slight Polychromasia slight Tear drop cells Occasional Schistocytes rare Specimen Performing Laboratory [facility] [address] [place] [address] * Transfuse RBC (08/07/2017 1:05 AM) Only the most recent of 5 results within the time period is included. * Sodium level, urine, random (08/06/2017 4:40 PM) Component Value Ref Range Sodium, urine, random 87 mEQ/L Specimen Performing Laboratory Urine - Urine, clean [facility] catch [address] [place] [address] * Creatinine level, urine, random (08/06/2017 4:40 PM) Component Value Ref Range Creatinine, urine, random 33 mg/dL Specimen Performing Laboratory Urine - Urine, clean [facility] catch [address] [place] [address] * IR Bilateral Nephrostomy Initial Placement (08/06/2017 12:52 PM) Specimen Performing Laboratory [facility] [id number] [place] [address] Narrative Examination:IR BILATERAL NEPHROSTOMY INITIAL PLACEMENT Clinical history:"bilateral hydronephrosis with renal failure" Comparison:There are no prior studies for comparison. Anesthesia:Lidocaine solution was injected into the involved tissues. Conscious sedation:After the risks and benefits of conscious sedation were discussed, midazolam and fentanyl were administered intravenously. Throughout the conscious sedation duration, the patient was continuously monitored by a registered nurse. The physician intraservice [id number] time with the patient was 40 minutes. Reference air kerma:70 mGy. Technique:The patient was prepared using sterile technique after signed, informed consent was obtained. Maximal sterile barrier technique was implemented.Prophylactic antibiotics were administered intravenously prior to the start of procedure. A movable bulkhead installer fluoroscopic image of the right kidney was obtained.The right kidney was imaged sonographically and found to be moderately hydronephrotic. Using real-time fluoroscopic guidance, a 22-gauge needle was inserted into a mid pole renal calyx via a posterolateral, infracostal approach.A sonographic image of percutaneous needle position into the renal calyx was obtained for permanent documentation. Through the needle, a small amount of contrast was injected; this partially opacified the dilated renal calyx and confirmed appropriate needle position. Seldinger technique was used to place an exchange 7 Micronesian catheter that was advanced into the central portion of the renal collecting system.Additional contrast was injected through the 7 Micronesian catheter.This opacified the remainder of the renal collecting system as well as the right ureter; the ureter is unremarkable in appearance.Through the catheter, a guidewire was introduced and coiled within the renal collecting system.After the percutaneous tissues were dilated, an 8.5 Micronesian nephrostomy catheter was introduced and positioned appropriately using fluoroscopic guidance.The external portion of the catheter was sutured to the adjacent skin. A movable bulkhead installer fluoroscopic image of the left kidney was obtained.The left kidney was imaged sonographically and found to be moderately hydronephrotic.Using real-time fluoroscopic guidance, a 22-gauge needle was inserted into a mid pole renal calyx via a posterolateral, infracostal approach.A sonographic image of percutaneous needle position into the renal calyx was obtained for permanent documentation. Through the needle, a small amount of contrast was injected; this partially opacified the dilated renal calyx and confirmed appropriate needle position. Seldinger technique was used to place an exchange 7 Micronesian catheter that was advanced into the central portion of the left renal collecting system. Additional contrast was injected through the 7 Micronesian catheter.This opacified the remainder of the renal collecting system as well as the left ureter; the ureter is unremarkable in appearance.Through the catheter, a guidewire was introduced and coiled within the renal collecting system.After the percutaneous tissues were dilated, an 8.5 Micronesian nephrostomy catheter was introduced and positioned appropriately using fluoroscopic guidance.The external portion of the catheter was sutured to the adjacent skin. Estimated blood loss:Less than 5 cc. Complications:None. Specimens removed:None. Assistants:None. FINDINGS: 1. Renal ultrasound demonstrates moderate bilateral hydronephrosis. 2. Antegrade nephrostogram demonstrates moderate ureterohydronephrosis with high -grade stenosis at distal ureters, bilaterally. IMPRESSION: An 8.5 Micronesian nephrostomy catheter was introduced into the hydronephrotic right renal system and an 8.5 Micronesian nephrostomy catheter was introduced into the hydronephrotic left renal collecting system using image guidance and without incident as described above. Thank you for allowing us to participate in the care of your patient. [id number] Procedure Note Hm Interface, Radiology Results Incoming - 08/06/2017 2:10 PM CDT Examination: IR BILATERAL NEPHROSTOMY INITIAL PLACEMENT Clinical history: "bilateral hydronephrosis with renal failure" Comparison: There are no prior studies for comparison. Anesthesia: Lidocaine solution was injected into the involved tissues. Conscious sedation: After the risks and benefits of conscious sedation were discussed, midazolam and fentanyl were administered intravenously. Throughout the conscious sedation duration, the patient was continuously monitored by a registered nurse. The physician intraservice [id number] time with the patient was 40 minutes. Reference air kerma: 70 mGy. Technique: The patient was prepared using sterile technique after signed, informed consent was obtained. Maximal sterile barrier technique was implemented. Prophylactic antibiotics were administered intravenously prior to the start of procedure. A movable bulkhead installer fluoroscopic image of the right kidney was obtained. The right kidney was imaged sonographically and found to be moderately hydronephrotic. Using real-time fluoroscopic guidance, a 22-gauge needle was inserted into a mid pole renal calyx via a posterolateral, infracostal approach. A sonographic image of percutaneous needle position into the renal calyx was obtained for permanent documentation. Through the needle, a small amount of contrast was injected; this partially opacified the dilated renal calyx and confirmed appropriate needle position. Seldinger technique was used to place an exchange 7 Micronesian catheter that was advanced into the central portion of the renal collecting system. Additional contrast was injected through the 7 Micronesian catheter. This opacified the remainder of the renal collecting system as well as the right ureter; the ureter is unremarkable in appearance. Through the catheter, a guidewire was introduced and coiled within the renal collecting system. After the percutaneous tissues were dilated, an 8.5 Micronesian nephrostomy catheter was introduced and positioned appropriately using fluoroscopic guidance. The external portion of the catheter was sutured to the adjacent skin. A movable bulkhead installer fluoroscopic image of the left kidney was obtained. The left kidney was imaged sonographically and found to be moderately hydronephrotic. Using real-time fluoroscopic guidance, a 22-gauge needle was inserted into a mid pole renal calyx via a posterolateral, infracostal approach. A sonographic image of percutaneous needle position into the renal calyx was obtained for permanent documentation. Through the needle, a small amount of contrast was injected; this partially opacified the dilated renal calyx and confirmed appropriate needle position. Seldinger technique was used to place an exchange 7 Micronesian catheter that was advanced into the central portion of the left renal collecting system. Additional contrast was injected through the 7 Micronesian catheter. This opacified the remainder of the renal collecting system as well as the left ureter; the ureter is unremarkable in appearance. Through the catheter, a guidewire was introduced and coiled within the renal collecting system. After the percutaneous tissues were dilated , an 8.5 Micronesian nephrostomy catheter was introduced and positioned appropriately using fluoroscopic guidance. The external portion of the catheter was sutured to the adjacent skin. Estimated blood loss: Less than 5 cc. Complications: None. Specimens removed: None. Assistants: None. FINDINGS: 1. Renal ultrasound demonstrates moderate bilateral hydronephrosis. 2. Antegrade nephrostogram demonstrates moderate ureterohydronephrosis with high-grade stenosis at distal ureters, bilaterally. IMPRESSION: An 8.5 Micronesian nephrostomy catheter was introduced into the hydronephrotic right renal system and an 8.5 Micronesian nephrostomy catheter was introduced into the hydronephrotic left renal collecting system using image guidance and without incident as described above. Thank you for allowing us to participate in the care of your patient. [id number] * Arterial blood gas (08/06/2017 6:54 AM) Only the most recent of 2 results within the time period is included. Component Value Ref Logger BXW Collection site RRA O2 therapy BIPAP pH, arterial 7.285 (LL)Comment: CALLED TO RT CASE CABALLERO @ 7.350 - 7.450 units 07:05 08/06/2017 RB OK -NKS pCO2, arterial 36.2 35.0 - 45.0 mmHg pO2, arterial 139.0 (H) 80.0 - 90.0 mmHg O2 saturation, arterial 98.3 95.0 - 100.0 % Base excess, arterial -9.5 mEq/L Bicarbonate 17.2 (LL) 21.0 - 28.0 mEq/L O2 content 10.1 VOL% FiO2, inspired O2% 45.0 % Carboxyhemoglobin 0.4 0.0 - 1.4 % Comment: Reference Ranges: Carboxyhemoglobin Non smoker: 0.0 - 2.0% Smoker: 2.1 - 5.0% Heavy smoker: 5.1 - 9% Methemoglobin 0.9 0.0 - 1.0 % Hemoglobin, blood gas 7.2 (LL) 12.0 - 16.0 g/dL pO2, A-a 141.1 mmHg Specimen Performing Laboratory Blood [facility] [address] [place] [address] * XR Chest 1 Vw Portable (08/06/2017 6:24 AM) Only the most recent of 2 results within the time period is included. Specimen Performing Laboratory [facility] [address] [facility] [place] [address] Narrative EXAMINATION:XR CHEST 1 VW PORTABLE CLINICAL HISTORY:SHORTNESS OF BREATH COMPARISON:August 05, 2017 FINDINGS: The heart is enlarged. There is a right-sided ported central catheter its tip projects in the SVC above the right atrium. The pulmonary vasculature is diffusely increased although improving since yesterday. Overall the findings suggest improving mild heart failure. There is likely small amount of pleural fluid. IMPRESSION: 1. Cardiomegaly. 2. Mild increased pulmonary vascularity consistent with mild heart failure showing slight improvement from yesterday. [id number] Procedure Note Interface, Radiology Results Incoming - 08/06/2017 7:43 AM CDT EXAMINATION: XR CHEST 1 VW PORTABLE CLINICAL HISTORY: SHORTNESS OF BREATH COMPARISON: August 05, 2017 FINDINGS: The heart is enlarged. There is a right-sided ported central catheter its tip projects in the SVC above the right atrium. The pulmonary vasculature is diffusely increased although improving since yesterday. Overall the findings suggest improving mild heart failure. There is likely small amount of pleural fluid. IMPRESSION: 1. Cardiomegaly. 2. Mild increased pulmonary vascularity consistent with mild heart failure showing slight improvement from yesterday. [id number] * Partial thromboplastin time, activated (08/06/2017 4:32 AM) Component Value Ref Range PTT 31.8 23.0 - 36.0 sec Comment: PTT therapeutic range for unfractionated heparin is 61.0-112.0 seconds which corresponds to Anti-Xa 0.3-0.7 U/ml. Note: Change in Panic Value The PTT Panic Value is changing from 110 sec. to 100 sec. due to new instrumentation and reagents. Correlation studies have been performed to validate this result. Specimen Performing Laboratory Blood [facility] [address] [place] [address] * Lipase level (08/06/2017 4:32 AM) Component Value Ref Range Lipase 37 (L) 65 - 230 U/L Specimen Performing Laboratory Plasma specimen [facility] [address] [place] [address] * LDH (08/06/2017 4:32 AM) Component Value Ref Range LDH 271 (H) 81 - 234 U/L Specimen Performing Laboratory Plasma specimen [facility] [address] [place] [address] * Iron level (08/06/2017 4:32 AM) Component Value Ref Range Iron level 44 (L) 76 - 198 ug/dL Specimen Performing Laboratory Blood [facility] [address] [place] [address] * Ferritin level (08/06/2017 4:32 AM) Component Value Ref Range Ferritin level 222 (H) 10 - 125 ng/mL Specimen Performing Laboratory Serum [facility] [address] [place] [address] * Amylase level (08/06/2017 4:32 AM) Component Value Ref Range Amylase 20 (L) 34 - 122 U/L Specimen Performing Laboratory Plasma specimen [facility] [address] [place] [address] * Prothrombin time with INR (08/06/2017 4:31 AM) Component Value Ref Range Prothrombin time 15.5 (H) 12.0 - 15.0 sec INR 1.21 (H) 0.92 - 1.12 Comment: For patients on anticoagulant therapy, reference ranges below: Indication: INR Value Treatment of Venous Thrombosis, 2.0-3.0 pulmonary emboli, or prophylaxis of a venous thrombosis, or systemic emboli. High dose, high risk patients 3.0-4.5 with mechanical valves. NOTE: INR values over 3.0 are sometimes associated with gastrointestinal hemorrhage, especially values over 4.0. Specimen Performing Laboratory Blood [facility] [address] [place] [address] * US Renal (08/06/2017 2:22 AM) Specimen Performing Laboratory [facility] [address] [place] [address] Narrative EXAM:US RENAL CLINICAL HISTORY:Evaluate size and position of the kidneys, elevated creatinine COMPARISON:CT, 08/05/2017 FINDINGS: The kidneys are normal in size and echogenicity. Bilateral mild to moderate hydronephrosis is present. There is no evidence of renal mass, calculi, or hydronephrosis. The right kidney measures 12.74 cm; cortex measures 1.4 cm. The left kidney measures 12.21 cm; cortex measures 1.6 cm. Bladder is partially decompressed by a Mercer catheter balloon. The decompressed bladder demonstrates diffuse mural thickening, for example measuring 1.72 cm on image [id number]. In addition, the uterus is identified and demonstrates a localized hypoechoic/anechoic collection within the vagina measuring up to 4.7 x 3.8 x 6.4 cm and potentially mechanical service representative of hematocolpos. IMPRESSION: 1.Bilateral mild/moderate renal hydronephrosis, likely secondary to the nonspecific cystic mural infiltration. 2.In addition, the uterus is identified and demonstrates a localized hypoechoic/anechoic collection within the vagina measuring up to 4.7 x 3.8 x 6.4 cm and potentially mechanical service representative of hematocolpos. [facility]-[id number] Procedure Note [facility], Radiology Results Incoming - 08/06/2017 2:36 AM CDT EXAM: US RENAL CLINICAL HISTORY: Evaluate size and position of the kidneys, elevated creatinine COMPARISON: CT, 08/05/2017 FINDINGS: The kidneys are normal in size and echogenicity. Bilateral mild to moderate hydronephrosis is present. There is no evidence of renal mass, calculi, or hydronephrosis. The right kidney measures 12.74 cm; cortex measures 1.4 cm. The left kidney measures 12.21 cm; cortex measures 1.6 cm. Bladder is partially decompressed by a Mercer catheter balloon. The decompressed bladder demonstrates diffuse mural thickening, for example measuring 1.72 cm on image 7936. In addition, the uterus is identified and demonstrates a localized hypoechoic/anechoic collection within the vagina measuring up to 4.7 x 3.8 x 6.4 cm and potentially mechanical service representative of hematocolpos. IMPRESSION: 1. Bilateral mild/moderate renal hydronephrosis, likely secondary to the nonspecific cystic mural infiltration. 2. In addition, the uterus is identified and demonstrates a localized hypoechoic/anechoic collection within the vagina measuring up to 4.7 x 3.8 x 6.4 cm and potentially mechanical service representative of hematocolpos. [facility]-[id number] * Prepare RBC, 2 Units (08/05/2017 6:02 PM) Only the most recent of 3 results within the time period is included. Component Value Ref Range Product name Red Blood Cells -1, Leukored Unit number [id number] Product code [id number] Dispense status Transfused Blood expiration date Blood type code 5100 Blood type O POSITIVE Specimen Performing Laboratory [facility] [address] [place] [address] * Type and screen (08/05/2017 6:02 PM) Component Value Ref Range ABO grouping O Rh type POS Antibody screen (gel) NEG Specimen Performing Laboratory Blood [facility] [address] [place] [address] * Urinalysis screen and microscopy, with reflex to culture (08/05/2017 5:14 PM) Component Value Ref Range Specimen site Clean catch Color, UA Yellow Appearance, UA Cloudy Specific gravity, UA 1.011 1.001 - 1.035 pH, UA 6.0 5.0 - 8.5 Protein, UA 2+ (A) Negative Glucose, UA Negative Negative Ketones, UA Negative Negative Bilirubin, UA Negative Negative Blood, UA Small (A) Negative Nitrite, UA Positive (A) Negative Urobilinogen, UA Negative <2.0 Leukocyte esterase, UA Large (A) Negative Epithelial cells, UA Moderate /HPF WBC, UA >200 (H) 0 - 5 /HPF RBC, UA 38 (H) 0 - 5 /HPF Bacteria, UA Trace None seen WBC clumps, UA Many (A) Yeast, UA None seen Yeast with pseudohyphae, None seen UA Specimen Performing Laboratory Urine [facility] [address] [place] [address] * Gram stain (08/05/2017 5:14 PM) Component Value Ref Range Gram stain result Occasional WBC's Many Gram positive rods Comment: Specimen Information Specimen Source: Urine Specimen Site: Clean catch Specimen Performing Laboratory Urine [facility] DEPARTMENT OF PATHOLOGY AND GENOMIC MEDICINE [address] [place] [id number] * Urine culture (08/05/2017 5:14 PM) Component Value Ref Range Urine culture isolate Mixed Gram positive rustam 10-4 cfu/ml (A) Comment: Specimen Information Specimen Source: Urine Specimen Site: Clean catch Urine culture isolate Gram negative rods <10-1 cfu/ml (A) Specimen Performing Laboratory Urine [facility] DEPARTMENT OF PATHOLOGY AND GENOMIC MEDICINE [address] [place] [address] * CT Abdomen Pelvis Wo Contrast (08/05/2017 5:01 PM) Specimen Performing Laboratory [facility] [address] [place] [address] Narrative EXAMINATION: CT ABDOMEN PELVIS WO CONTRAST CLINICAL HISTORY: mass COMPARISON: None TECHNIQUE: Contiguous 5 mm axial slices were performed from the hemidiaphragms to the iliac crests without IV contrast. No oral contrast was given for the procedure REQUEST BY PHYSICIAN. . Images were acquired on a multidetector CT scanner using helical scanning technique with 2-D reconstructions in the coronal and sagittal planes.The dose length product for the entire procedure is 312 mGy-cm. CT imaging was performed with iterative reconstruction technique and/or automated exposure control to reduce radiation dose. FINDINGS: 1. The lung parenchymal window settings demonstrate no lung parenchymal nodules or masses. No consolidation or air bronchograms are seen. A small anterior pericardial effusion is present and measures 6.9 mm thickness. 2. The absence of intravenous iodinated contrast media precludes evaluation of solid organ pathology. No abnormality is demonstrated of the liver, spleen, pancreas. Moderate to marked bilateral 100 cirrhosis is demonstrated along with bilateral hydroureter down to the UV junction. Prominent bladder wall thickening is noted. No obstructing calculus is seen. Soft tissue thickening is noted in the posterior wall of the bladder and the possibility of the bladder mass is suspected. 3. The absence of enteric contrast precludes evaluation of the small and large bowel as well as the stomach. No dilatation of the small or large bowel are identified. The appendix is visualized and is normal. 4. No intra-abdominal fluid collections, mesenteric masses, or retroperitoneal lymphadenopathy is seen. 5. The aorta is normal in caliber with no atheromatous plaque formation..No abnormality of the inferior vena cava is noted. The gallbladder is normal. 6. The sagittal and coronal reconstructed images demonstrate no abnormality. 7. Bone window settings demonstrate no gross acute bony abnormality. CT PELVIS: No pelvic fluid collections, masses, or lymphadenopathy is seen. No inguinal lymphadenopathy is identified. Note is made of significantly thickened endometrial stripe of 2.6 cm. The uterus measures 10.7 cm length by 6.3 cm AP. IMPRESSION: Abnormal study. Moderate to significant obstructive uropathy bilaterally presumably due to invasion of the trigone for possible cervical carcinoma with hematocolpos and marked thickening of the endometrial stripe. Marked bladder wall thickening Small anterior loculated pericardial effusion. [id number] Procedure Note Interface, Radiology Results - 08/05/2017 5:15 PM CDT EXAMINATION: CT ABDOMEN PELVIS WO CONTRAST CLINICAL HISTORY: mass COMPARISON: None TECHNIQUE: Contiguous 5 mm axial slices were performed from the hemidiaphragms to the iliac crests without IV contrast. No oral contrast was given for the procedure REQUEST BY PHYSICIAN. . Images were acquired on a multidetector CT scanner using helical scanning technique with 2-D reconstructions in the coronal and sagittal planes.The dose length product for the entire procedure is 312 mGy-cm. CT imaging was performed with iterative reconstruction technique and/or automated exposure control to reduce radiation dose. FINDINGS: 1. The lung parenchymal window settings demonstrate no lung parenchymal nodules or masses. No consolidation or air bronchograms are seen. A small anterior pericardial effusion is present and measures 6.9 mm thickness. 2. The absence of intravenous iodinated contrast media precludes evaluation of solid organ pathology. No abnormality is demonstrated of the liver, spleen, pancreas. Moderate to marked bilateral 100 cirrhosis is demonstrated along with bilateral hydroureter down to the UV junction. Prominent bladder wall thickening is noted. No obstructing calculus is seen. Soft tissue thickening is noted in the posterior wall of the bladder and the possibility of the bladder mass is suspected. 3. The absence of enteric contrast precludes evaluation of the small and large bowel as well as the stomach. No dilatation of the small or large bowel are identified. The appendix is visualized and is normal. 4. No intra-abdominal fluid collections, mesenteric masses, or retroperitoneal lymphadenopathy is seen. 5. The aorta is normal in caliber with no atheromatous plaque formation..No abnormality of the inferior vena cava is noted. The gallbladder is normal. 6. The sagittal and coronal reconstructed images demonstrate no abnormality. 7. Bone window settings demonstrate no gross acute bony abnormality. CT PELVIS: No pelvic fluid collections, masses, or lymphadenopathy is seen. No inguinal lymphadenopathy is identified. Note is made of significantly thickened endometrial stripe of 2.6 cm. The uterus measures 10.7 cm length by 6.3 cm AP. IMPRESSION: Abnormal study. Moderate to significant obstructive uropathy bilaterally presumably due to invasion of the trigone for possible cervical carcinoma with hematocolpos and marked thickening of the endometrial stripe. Marked bladder wall thickening Small anterior loculated pericardial effusion. [id number] * Manual differential (08/05/2017 4:45 PM) Component Value Ref Range Manual differential PERFORMED Neutrophils 84.0 (H) 36.0 - 66.0 % Lymphocytes 5.0 (L) 24.0 - 44.0 % Monocytes 3.0 0.0 - 6.0 % Eosinophils 7.0 (H) 0.0 - 6.0 % Basophils 0.0 0.0 - 1.2 % Metamyelocytes 0 0 - 1 % Promyelocytes 0 0 - 1 % Reactive lymphocytes 1.0 Platelet slide review Increased (A) Anisocytosis 1+ Polychromasia Few Tear drop cells Occasional Schistocytes Occasional Spherocytes Occasional Ovalocytes 1+ Grace cells Occasional Enlarged platelets 1+ Elliptocytes Occasional Specimen Performing Laboratory [facility] [address] [place] [address] * ECG ED Preliminary Interpretation - NOT AN ORDER (08/05/2017 4:14 PM) Narrative Tang Dang MD 08/05/2017 10:20 PM ECG ED Preliminary Interpretation - Not an Order Performed by: TANG DANG Authorized by: TANG DANG Interpretation: Interpretation: abnormal Rate: ECG rate:125 ECG rate assessment: tachycardic Rhythm: Rhythm: sinus rhythm Ectopy: Ectopy: none QRS: QRS axis:Normal Conduction: Conduction: normal ST segments: ST segments:Normal T waves: T waves: normal * CRITICAL CARE (08/05/2017 4:14 PM) Narrative Tang Dang MD 08/05/2017 10:20 PM Critical Care Performed by: TANG DANG Authorized by: TANG DANG Critical care provider statement: Critical care time (minutes):75 Critical care was necessary to treat or prevent imminent or life-threatening deterioration of the following conditions:Metabolic crisis and renal failure Critical care was time spent personally by me on the following activities:Blood draw for specimens, development of treatment plan with patient or surrogate, discussions with consultants, evaluation of patient's response to treatment, discussions with primary provider, re-evaluation of patient's condition, pulse oximetry, ordering and review of radiographic studies, ordering and review of laboratory studies and ordering and performing treatments and interventions after 10/10/2016 Insurance Payer Benefit Subscriber ID Type Phone Address Plan / Group [employer] xxxxxxxxxx Exchange [employer]ANGE Work: [id number] [facility] [address] am[place] [phone] Home:
--- OUTSIDE RECORDS SUMMARY | 2017-10-11 11:30 | XMS REPORT ---
Author Author Admin, [facility] [place] Phone Unavailable Allergies, Adverse Reactions, Alerts Allergy Name Reaction Description Start Date Severity Status Provider PENICILLIN Throat swells up Critical Active Chen Dewitt D.O. Conditions or Problems Problem Name Problem Code Onset Date Status Entry Date Provider Comment Standard Description Annotate Bronchitis 490 Active Janes Contreras MD Bronchitis, not specified as acute or chronic Obstructive uropathy 599.60 Active Janes Contreras MD Urinary obstruction, unspecified Renal failure 586 Active Janes Contreras MD Renal failure, unspecified Ureteral stricture 593.3 Active Janes Contreras MD Stricture or kinking of ureter BMI 25.0-25.9 Active Casey Kumar MD Body Mass Index 25.0-25.9, adult Urinary retention 788.20 Active Casey Kumar MD Retention of urine, unspecified ALLERGIC RHINITIS 477.9 Active Chen Dewitt D.O. Allergic rhinitis, cause unspecified Cervical cancer 180.9 Active Chen Dewitt D.O. Malignant neoplasm of cervix uteri, unspecified finsihed treatment in January 10 cisplatin chemo--IV port, 28 pelvic radiations and 4 brachitherapies had diagnosis in September 2016, stage II cervical cancer with mets to the pelvic area; no cancer on last image; sees Dr. Barrett at [facility] for follow -up (the one who did brachitherapy) Elevated blood pressure reading without diagnosis of hypertension 796.2 07/26 Active Chen M Ehdaie D.O. Elevated blood pressure reading without diagnosis of hypertension Renal insufficiency 593.9 Active Chen TysonO. Unspecified disorder of kidney and ureter based on history Ureteral jj stent placement, bilateral ICD-V45.89 Inactive Jensen Herman MD (res) Ureteral jj stent placement, bilateral V45.89 Resolved Janes Contreras MD Other postsurgical status Medication List Medication Instructions Start Date Stop Date Generic Name NDC Status Provider Patient Instruction GABAPENTIN 300 MG ORAL CAPSULE 1 by mouth three times a day GABAPENTIN 82505155180 Active Janes Contreras MD Active MORPHINE SULFATE ER 60 MG ORAL TABLET EXTENDED RELEASE 1 tab By Mouth Every 12 hours As Needed MORPHINE SULFATE 80050049296 Active Janes Contreras MD Active NORCO 10-325 MG ORAL TABLET HYDROCODONE-ACETAMINOPHEN 73899345099 Active Janes Contreras MD Active ZOFRAN 8 MG ORAL TABLET 1 tablet By Mouth Every 8 hours. ONDANSETRON HCL 54015146005 Active Janes Contreras MD Active PROAIR HFA 108 (90 BASE) MCG/ACT INHALATION AEROSOL SOLUTION 2 puffs every 4 - 6 hours as needed ALBUTEROL SULFATE 79523265383 Active Mario Carreon MD (res) Active AZITHROMYCIN 250 MG ORAL TABLET 2 tablets by mouth on day one then one tablet by mouth each day for a total of 5 days AZITHROMYCIN 250 MG ORAL TABLET 519670 AZITHROMYCIN Inactive AMOXICILLIN 500 MG ORAL CAPSULE 1 by mouth Q12 hrs AMOXICILLIN 500 MG ORAL CAPSULE 167341 AMOXICILLIN Inactive NASONEX 50 MCG/ACT NASAL SUSPENSION 2 sprays each nostril every day NASONEX 50 MCG/ACT NASAL SUSPENSION 0652891 MOMETASONE FUROATE Inactive AZITHROMYCIN 250 MG ORAL TABLET 2 tablets by mouth on day one then one tablet by mouth each day for a total of 5 days AZITHROMYCIN 90478139588 No Longer Active Janes Contreras MD Active AMOXICILLIN 500 MG ORAL CAPSULE 1 by mouth Q12 hrs AMOXICILLIN 14553039181 No Longer Active Mraio Carreon MD (res) Active NASONEX 50 MCG/ACT NASAL SUSPENSION 2 sprays each nostril every day MOMETASONE FUROATE 83256775158 No Longer Active Janes Contreras MD Active Vital Signs Date Name Value Unit Range Description blood pressure, diastolic 62 mm[Hg] BP polanco blood pressure, systolic 104 mm[Hg] BP sys height E&M 69 [in_us] Bdy height pulse rate E&M 110 /min Heart rate pulse rate #2 88 Heart rate respiratory rate E&M 24 /min Resp rate temperature E&M 98.3 [degF] Body temperature weight E&M 147.50 [lb_av] Weight Measured blood pressure, diastolic 73 mm[Hg] BP polanco blood pressure, systolic 102 mm[Hg] BP sys height E&M 69 [in_us] Bdy height pulse rate E&M 108 /min Heart rate respiratory rate E&M 18 /min Resp rate temperature E&M 97.5 [degF] Body temperature weight E&M 156.20 [lb_av] Weight Measured blood pressure, diastolic 88 mm[Hg] BP polanco blood pressure, systolic 146 mm[Hg] BP sys height E&M 69 [in_us] Bdy height pulse rate E&M 115 /min Heart rate respiratory rate E&M 17 /min Resp rate temperature E&M 98.4 [degF] Body temperature weight E&M 174.40 [lb_av] Weight Measured blood pressure, diastolic 99 mm[Hg] BP polanco blood pressure, systolic 166 mm[Hg] BP sys height E&M 69 [in_us] Bdy height pulse rate E&M 97 /min Heart rate respiratory rate E&M 18 /min Resp rate temperature E&M 97.9 [degF] Body temperature weight E&M 172 [lb_av] Weight Measured Encounters Date Encounter Provider Code Facility 10:05:36 CDT Est Patient Exp Problem - 47296 Janes Contreras MD CPT-[id number] [facility] 09:49:56 CDT Est Patient Exp Problem - 80292 Janes Contreras MD CPT-10002 [facility] 09:27:30 CDT Est Patient Exp Problem - 50281 Casey Kumar MD CPT-35997 [facility] 14:58:42 CDT New Patient Exp Problem - 24325 Chen Dewitt D.O. CPT-81995 [facility]
[2017-10-11] MEDS ORDERED: LEVOFLOXACIN 500MG/D5W 100ML 100 ML IV ONE (11:51)
[2017-10-11] MEDS ORDERED: GENTAMICIN 80MG/NS 100 ML 200 ML IV ONE (11:51)
[2017-10-11] MEDS ORDERED: CIPRO500 MG PO (12:01)
[2017-10-11] MEDS ORDERED: BELLADONNA/OPIUM 30 MG SUPP RC ONE (12:47)
[2017-10-11] MEDS ORDERED: METHYLENE BLUE 1% INJ 10 ML VIAL INJ ONE ×2 (13:49→14:07)
[2017-10-11] MEDS ORDERED: SEVOFLURANE INHAL SOLN 250 ML PEN BTL ONE (14:24)
[2017-10-11] MEDS ORDERED: DEXAMETHASONE SOD PHOS INJ 4 MG/ML VIAL ONE (14:24)
[2017-10-11] MEDS ORDERED: LIDOCAINE HCL 2% LOCAL INJ 5 ML SDV VIAL INJ ONE (14:24)
[2017-10-11] MEDS ORDERED: PROPOFOL IV EMULSION 10 MG/ML 20 ML VIAL ONE (14:24)
[2017-10-11] MEDS ORDERED: FENTANYL CITRATE/PF 100MCG/2 ML INJ ONE ×2 (14:38→15:14)
[2017-10-11] MEDS ORDERED: MORPHINE SULFATE INJ 10 MG/ML ONE (14:48)
[2017-10-11] MEDS ORDERED: MIDAZOLAM HCL 2 MG/2 ML VIAL ONE (15:14)
--- OUTSIDE RECORDS SUMMARY | 2017-10-11 15:52 | XMS REPORT | Clinical Summary ---
Author Author [facility] Organization [facility] Address Unknown Phone Unavailable Care Team Providers Care Machine Pie Maker Name Role Phone Lies Dewitt DO PCP Allergies Active Allergy Reactions [...] General Surgery Aretha Edwards RN 08/12/2017 Documentation Church Secretary Montse Pavel 08/12/2017 Telephone Urology Tony Kimball MD 08/05/2017 [facility] General Surgery Tang Dang Acute renal [...] INFLUENZA VACCINE 12/04/2017 Implants Implanted Type Area Sales Operations Analyst Device Expiration Model / Identifier Date Serial / Lot Catheter Uretl Ultrathane 8.5fr Surgical N/A: N/A COOK 02/13/2020 [id number] / 25cm 6sp Mac-Loc Lkng Loop - Implants; INTERVENTIONAL / [id number] Expanders; RADIOLOGY [id number] Implanted: 08/06/2017 (Quantity not Extenders; on file) Surgical Wires Catheter Uretl Ultrathane 8.5fr Surgical N/A: N/A COOK 02/13/2020 [id number] / 25cm 6sp Mac-Loc Lkng Loop - Implants; INTERVENTIONAL / [id number] Expanders; RADIOLOGY [id number] Implanted: 08/06/2017 (Quantity not Extenders; on file) Surgical Wires Procedures Procedure Name Priority Date/Time Associated Diagnosis Comments SD CRITICAL CARE, ADDL 30 Routine 08/05/2017 Results for this MIN 4:14 PM CDT procedure are in the results section. SD CRITICAL CARE, E/M Routine 08/05/2017 Results for this 30-74 MINUTES 4:14 PM CDT procedure are in the results section. after 10/10/2016 Results * Potassium level (08/09/2017 3:02 PM) Component Value Ref Range Potassium 3.6 3.5 - 5.0 mEq/L Specimen Performing Laboratory Plasma specimen [facility] DEPARTMENT OF PATHOLOGY AND GENOMIC MEDICINE [address] [place] [address] * ECG 12 lead (08/09/2017 10:43 AM) Only the most recent of 3 results within the time period is included. Component Value Ref Range Ventricular rate 116 Atrial rate 116 SD interval 144 QRSD interval 76 QT interval [...] evident in Anterior leads- Specimen Performing Laboratory [facility] MUSE [address] [facility] [address] * Estimated GFR (08/09/2017 6:10 AM) Only [...] and Americans. Specimen Performing Laboratory Plasma specimen [facility] DEPARTMENT OF PATHOLOGY AND GENOMIC MEDICINE [address] [place] [address] * CBC with platelet and differential (08/09/2017 [...] - 1.0 % Specimen Performing Laboratory Blood [facility] DEPARTMENT OF PATHOLOGY AND GENOMIC MEDICINE [address] [place] [address] * Magnesium level (08/09/2017 6:10 AM) Only the most recent of 4 results within the time period is included. Component Value Ref Range Magnesium 1.10 (L) 1.60 - 2.40 mg/dL Specimen Performing Laboratory Plasma specimen [facility] DEPARTMENT OF PATHOLOGY AND GENOMIC MEDICINE [address] [place] [address] * Basic metabolic panel (08/09/2017 6:10 AM) [...] 10.7 mg/dL Specimen Performing Laboratory Plasma specimen [facility] DEPARTMENT OF PATHOLOGY AND GENOMIC MEDICINE [address] [place] [address] * Phosphorus level (08/08/2017 6:25 AM) Only the most recent of 3 results within the time period is included. Component Value Ref Range Phosphorus 3.9 2.5 - 4.5 mg/dL Specimen Performing Laboratory Plasma specimen [facility] DEPARTMENT OF PATHOLOGY AND GENOMIC MEDICINE [address] [place] [address] * Ionized calcium (08/08/2017 6:25 AM) Only the most recent of 3 results within the time period is included. Component Value Ref Range pH 7.34 Ionized calcium 0.97 (L) 1.11 - 1.32 mmol/L Specimen Performing Laboratory Plasma specimen [facility] DEPARTMENT OF PATHOLOGY AND GENOMIC MEDICINE [address] [place] [address] * Comprehensive metabolic panel (08/08/2017 6:25 AM) [...] 1.2 mg/dL Specimen Performing Laboratory Plasma specimen [facility] DEPARTMENT OF PATHOLOGY AND GENOMIC MEDICINE [address] [place] [address] * XR Abdomen 1 Vw (08/07/2017 3:29 PM) Specimen Performing Laboratory [facility] [address] [place] [address] Narrative EXAMINATION:XR ABDOMEN 1 VW CLINICAL HISTORY:ABDOMINAL PAIN, CONSTIPATION COMPARISON:None. FINDINGS: There are bilateral nephrostomy catheters. There is gas in the colon. No dilated loops of small bowel are seen. There is no free air. IMPRESSION: As above [id number] Procedure Note Interface, Radiology Results Incoming - 08/07/2017 3:41 PM CDT EXAMINATION: XR ABDOMEN 1 VW CLINICAL HISTORY: ABDOMINAL PAIN, CONSTIPATION COMPARISON: None. FINDINGS: There are bilateral nephrostomy catheters. There is gas in the colon. No dilated loops of small bowel are seen. There is no free air. IMPRESSION: As above [id number] * Myoglobin (08/07/2017 2:17 PM) Component Value Ref Range Myoglobin 80.0 9.0 - 82.5 ng/mL Specimen Performing Laboratory Plasma specimen [facility] DEPARTMENT OF PATHOLOGY AND GENOMIC MEDICINE [address] [place] [address] * CK-MB (08/07/2017 2:17 PM) Component Value Ref Range CK-MB 2.6 0.5 - 3.2 ng/mL Comment: As of Sep 03 2017, this test will no longer be available in [facility]. Specimen Performing Laboratory Plasma specimen [facility] DEPARTMENT OF PATHOLOGY AND GENOMIC MEDICINE [address] [facility] [place] [address] * Troponin (08/07/2017 2:17 PM) Component Value [...] myocardial injury. Specimen Performing Laboratory Plasma specimen [facility] DEPARTMENT OF PATHOLOGY AND GENOMIC MEDICINE [address] [place] [address] [place] [address] * POC glucose (08/07/2017 1:51 PM) Only the most recent of 6 results within the time period is included. Component Value Ref Range POC glucose 177 (H) 65 - 100 mg/dL Comment: Meter ID: [id number] Auxiliary Powerplant Operator: Elroy Weber Specimen Performing Laboratory [facility] DEPARTMENT OF PATHOLOGY AND GENOMIC MEDICINE [address] [place] [address] [place] [address] * Smear review (08/07/2017 5:22 AM) Only the most recent of 2 results within the time period is included. Component Value Ref Range Platelet slide review Increased (A) Anisocytosis slight Polychromasia slight Tear drop cells Occasional Schistocytes rare Specimen Performing Laboratory [facility] DEPARTMENT OF PATHOLOGY AND GENOMIC MEDICINE [address] [facility] [place] [address] * Transfuse RBC (08/07/2017 1:05 AM) Only the most recent of 5 results within the time period is included. * Sodium level, urine, random (08/06/2017 4:40 PM) Component Value Ref Range Sodium, urine, random 87 mEQ/L Specimen Performing Laboratory Urine - Urine, clean [facility] DEPARTMENT OF PATHOLOGY AND GENOMIC MEDICINE catch [address] [facility] [place] [address] * Creatinine level, urine, random (08/06/2017 4:40 PM) Component Value Ref Range Creatinine, urine, random 33 mg/dL Specimen Performing Laboratory Urine - Urine, clean [facility] DEPARTMENT OF PATHOLOGY AND GENOMIC MEDICINE catch [address] [facility] [place] [address] * IR Bilateral Nephrostomy Initial Placement (08/06/2017 12:52 PM) Specimen Performing Laboratory [facility] [address] [place] [address] Narrative Examination:IR BILATERAL NEPHROSTOMY INITIAL PLACEMENT Clinical history:"bilateral hydronephrosis with renal failure" Comparison:There are no prior studies for comparison. Anesthesia:Lidocaine solution was injected into the involved tissues. Conscious sedation:After the risks and benefits of conscious sedation were discussed, midazolam and fentanyl were administered intravenously. Throughout the conscious sedation duration, the patient was continuously monitored by a registered nurse. The physician intraservice [id number] time with the patient was 40 minutes. Reference air kerma:70 mGy. Technique:The patient was prepared using sterile technique after signed, informed consent was obtained. Maximal sterile barrier technique was implemented.Prophylactic antibiotics were administered intravenously prior to the start of procedure. A ripening room operator fluoroscopic image of the right kidney was [...] was used to place an exchange 7 Tristanian catheter that was advanced into the central portion of the renal collecting system.Additional contrast was injected through the 7 Tristanian catheter.This opacified the remainder of the renal collecting system as well as the right ureter; the ureter is unremarkable in appearance.Through the catheter, a guidewire was introduced and coiled within the renal collecting system.After the percutaneous tissues were dilated, an 8.5 Tristanian nephrostomy catheter was introduced and positioned appropriately using fluoroscopic guidance.The external portion of the catheter was sutured to the adjacent skin. A ripening room operator fluoroscopic image of the left kidney was [...] was used to place an exchange 7 Tristanian catheter that was advanced into the central portion of the left renal collecting system. Additional contrast was injected through the 7 Tristanian catheter.This opacified the remainder of the renal collecting system as well as the left ureter; the ureter is unremarkable in appearance.Through the catheter, a guidewire was introduced and coiled within the renal collecting system.After the percutaneous tissues were dilated, an 8.5 Tristanian nephrostomy catheter was introduced and positioned appropriately using fluoroscopic guidance.The external portion of the catheter was sutured to the adjacent skin. Estimated blood loss:Less than 5 cc. Complications:None. Specimens removed:None. Assistants:None. FINDINGS: 1. Renal ultrasound demonstrates moderate bilateral hydronephrosis. 2. Antegrade nephrostogram demonstrates moderate ureterohydronephrosis with high -grade stenosis at distal ureters, bilaterally. IMPRESSION: An 8.5 Tristanian nephrostomy catheter was introduced into the hydronephrotic right renal system and an 8.5 Tristanian nephrostomy catheter was introduced into the hydronephrotic left renal collecting system using image guidance and without incident as described above. Thank you for allowing us to participate in the care of your patient. [id number] Procedure Note Hm Interface, Radiology Results Incoming [...] by a registered nurse. The physician intraservice [id number]-[id number] time with the patient was 40 minutes. Reference air kerma: 70 mGy. Technique: The patient was prepared using sterile technique after signed, informed consent was obtained. Maximal sterile barrier technique was implemented. Prophylactic antibiotics were administered intravenously prior to the start of procedure. A ripening room operator fluoroscopic image of the right kidney was [...] was used to place an exchange 7 Tristanian catheter that was advanced into the central portion of the renal collecting system. Additional contrast was injected through the 7 Tristanian catheter. This opacified the remainder of the renal collecting system as well as the right ureter; the ureter is unremarkable in appearance. Through the catheter, a guidewire was introduced and coiled within the renal collecting system. After the percutaneous tissues were dilated, an 8.5 Tristanian nephrostomy catheter was introduced and positioned appropriately using fluoroscopic guidance. The external portion of the catheter was sutured to the adjacent skin. A ripening room operator fluoroscopic image of the left kidney was [...] was used to place an exchange 7 Tristanian catheter that was advanced into the central portion of the left renal collecting system. Additional contrast was injected through the 7 Tristanian catheter. This opacified the remainder of the renal collecting system as well as the left ureter; the ureter is unremarkable in appearance. Through the catheter, a guidewire was introduced and coiled within the renal collecting system. After the percutaneous tissues were dilated , an 8.5 Tristanian nephrostomy catheter was introduced and positioned appropriately using fluoroscopic guidance. The external portion of the catheter was sutured to the adjacent skin. Estimated blood loss: Less than 5 cc. Complications: None. Specimens removed: None. Assistants: None. FINDINGS: 1. Renal ultrasound demonstrates moderate bilateral hydronephrosis. 2. Antegrade nephrostogram demonstrates moderate ureterohydronephrosis with high-grade stenosis at distal ureters, bilaterally. IMPRESSION: An 8.5 Tristanian nephrostomy catheter was introduced into the hydronephrotic right renal system and an 8.5 Tristanian nephrostomy catheter was introduced into the hydronephrotic left renal collecting system using image guidance and without incident as described above. Thank you for allowing us to participate in the care of your patient. [id number] * Arterial blood gas (08/06/2017 6:54 AM) Only the most recent of 2 results within the time period is included. Component Value Ref Junior Bookkeeper BXW Collection site RRA O2 therapy BIPAP [...] A-a 141.1 mmHg Specimen Performing Laboratory Blood [facility] DEPARTMENT OF PATHOLOGY AND GENOMIC MEDICINE [address] [place] [address] * XR Chest 1 Vw Portable (08/06/2017 6:24 AM) Only the most recent of 2 results within the time period is included. Specimen Performing Laboratory [facility] [address] [place] [address] Narrative EXAMINATION:XR CHEST 1 VW PORTABLE CLINICAL [...] heart failure showing slight improvement from yesterday. [id number] Procedure Note Interface, Radiology Results Incoming - [...] heart failure showing slight improvement from yesterday. [id number] * Partial thromboplastin time, activated (08/06/2017 4:32 [...] validate this result. Specimen Performing Laboratory Blood [facility] DEPARTMENT OF PATHOLOGY AND GENOMIC MEDICINE [address] [place] [address] * Lipase level (08/06/2017 4:32 AM) Component Value Ref Range Lipase 37 (L) 65 - 230 U/L Specimen Performing Laboratory Plasma specimen [facility] DEPARTMENT OF PATHOLOGY AND GENOMIC MEDICINE [address] [place] [address] * LDH (08/06/2017 4:32 AM) Component Value Ref Range LDH 271 (H) 81 - 234 U/L Specimen Performing Laboratory Plasma specimen [facility] DEPARTMENT OF PATHOLOGY AND GENOMIC MEDICINE [address] [place] [address] * Iron level (08/06/2017 4:32 AM) Component Value Ref Range Iron level 44 (L) 76 - 198 ug/dL Specimen Performing Laboratory Blood [facility] DEPARTMENT OF PATHOLOGY AND GENOMIC MEDICINE [address] [place] [address] * Ferritin level (08/06/2017 4:32 AM) Component Value Ref Range Ferritin level 222 (H) 10 - 125 ng/mL Specimen Performing Laboratory Serum [facility] DEPARTMENT OF PATHOLOGY AND GENOMIC MEDICINE [address] [place] [address] * Amylase level (08/06/2017 4:32 AM) Component Value Ref Range Amylase 20 (L) 34 - 122 U/L Specimen Performing Laboratory Plasma specimen [facility] DEPARTMENT OF PATHOLOGY AND GENOMIC MEDICINE [address] [place] [address] * Prothrombin time with INR (08/06/2017 4:31 [...] values over 4.0. Specimen Performing Laboratory Blood [facility] DEPARTMENT OF PATHOLOGY AND GENOMIC MEDICINE [address] [place] [address] * US Renal (08/06/2017 2:22 AM) Specimen Performing Laboratory [facility] [address] [place] [address] Narrative EXAM:US RENAL CLINICAL HISTORY:Evaluate size and [...] x 3.8 x 6.4 cm and potentially assistance representative of hematocolpos. IMPRESSION: 1.Bilateral mild/moderate renal hydronephrosis, likely secondary to the nonspecific cystic mural infiltration. 2.In addition, the uterus is identified and demonstrates a localized hypoechoic/anechoic collection within the vagina measuring up to 4.7 x 3.8 x 6.4 cm and potentially assistance representative of hematocolpos. [facility]-[id number] Procedure Note [facility], Radiology Results Incoming - 08/06/2017 2:36 AM [...] x 3.8 x 6.4 cm and potentially assistance representative of hematocolpos. IMPRESSION: 1. Bilateral mild/moderate renal hydronephrosis, likely secondary to the nonspecific cystic mural infiltration. 2. In addition, the uterus is identified and demonstrates a localized hypoechoic/anechoic collection within the vagina measuring up to 4.7 x 3.8 x 6.4 cm and potentially assistance representative of hematocolpos. [facility]-[id number] * Prepare RBC, 2 Units (08/05/2017 6:02 PM) Only the most recent of 3 results within the time period is included. Component Value Ref Range Product name Red Blood Cells -1, Leukored Unit number [id number] Product code [id number] Dispense status Transfused Blood expiration date Blood type code 5100 Blood type O POSITIVE Specimen Performing Laboratory [facility] DEPARTMENT OF PATHOLOGY AND GENOMIC MEDICINE [address] [place] [address] * Type and screen (08/05/2017 6:02 PM) Component Value Ref Range ABO grouping O Rh type POS Antibody screen (gel) NEG Specimen Performing Laboratory Blood [facility] DEPARTMENT OF PATHOLOGY AND GENOMIC MEDICINE [address] [place] [address] * Urinalysis screen and microscopy, with reflex [...] None seen UA Specimen Performing Laboratory Urine [facility] DEPARTMENT OF PATHOLOGY AND GENOMIC MEDICINE [address] [place] [address] * Gram stain (08/05/2017 5:14 PM) Component Value Ref Range Gram stain result Occasional WBC's Many Gram positive rods Comment: Specimen Information Specimen Source: Urine Specimen Site: Clean catch Specimen Performing Laboratory Urine [facility] DEPARTMENT OF PATHOLOGY AND GENOMIC MEDICINE [address] [place] [address] * Urine culture (08/05/2017 5:14 PM) Component Value Ref Range Urine culture isolate Mixed Gram positive rustam 10-4 cfu/ml (A) Comment: Specimen Information Specimen Source: Urine Specimen Site: Clean catch Urine culture isolate Gram negative rods <10-1 cfu/ml (A) Specimen Performing Laboratory Urine [facility] DEPARTMENT OF PATHOLOGY AND GENOMIC MEDICINE [address] [place] [address] * CT Abdomen Pelvis Wo Contrast (08/05/2017 5:01 PM) Specimen Performing Laboratory [facility] [address] [place] [address] Narrative EXAMINATION: CT ABDOMEN PELVIS WO CONTRAST [...] wall thickening Small anterior loculated pericardial effusion. [id number] Procedure Note Interface, Radiology Results - 08/05/2017 [...] wall thickening Small anterior loculated pericardial effusion. [id number] * Manual differential (08/05/2017 4:45 PM) Component [...] platelets 1+ Elliptocytes Occasional Specimen Performing Laboratory [facility] DEPARTMENT OF PATHOLOGY AND GENOMIC MEDICINE [address] [place] [address] * ECG ED Preliminary Interpretation - NOT [...] PAULSON xxxxxxxxxx [employer] Work: [id number] [facility] [address] amily JEANNIE LIANG [id number] Home:
--- OUTSIDE RECORDS SUMMARY | 2017-10-11 15:52 | XMS REPORT ---
Author Author Admin, [facility] Address Unknown Phone Unavailable Allergies, Adverse Reactions, [...] on last image; sees Dr. Barrett at [facility] for follow -up (the one who did brachitherapy) Elevated blood pressure reading without diagnosis of hypertension 796.2 07/26 Active Chen M Ehdaie D.O. Elevated blood pressure reading without diagnosis of hypertension Renal insufficiency 593.9 Active Chen TysonO. Unspecified disorder of kidney and ureter based on history Ureteral jj stent placement, bilateral ICD-V45.89 Inactive Jensen Heramn MD (res) Ureteral jj stent placement, bilateral V45.89 Resolved Janes Contreras MD Other postsurgical status Medication List Medication Instructions Start Date Stop Date Generic Name NDC Status Provider Patient Instruction GABAPENTIN 300 MG ORAL CAPSULE 1 by mouth three times a day GABAPENTIN 98835908388 Active Janes Contreras MD Active MORPHINE SULFATE ER 60 MG ORAL TABLET EXTENDED RELEASE 1 tab By Mouth Every 12 hours As Needed MORPHINE SULFATE 01221037658 Active Janes Contreras MD Active NORCO 10-325 MG ORAL TABLET HYDROCODONE-ACETAMINOPHEN 15160090726 Active Janes Contreras MD Active ZOFRAN 8 MG ORAL TABLET 1 tablet By Mouth Every 8 hours. ONDANSETRON HCL 58617915390 Active Janes Contreras MD Active PROAIR HFA 108 (90 BASE) MCG/ACT INHALATION AEROSOL SOLUTION 2 puffs every 4 - 6 hours as needed ALBUTEROL SULFATE 22988800347 Active Mario Carreon MD (res) Active AZITHROMYCIN 250 MG ORAL TABLET 2 tablets by mouth on day one then one tablet by mouth each day for a total of 5 days AZITHROMYCIN 250 MG ORAL TABLET 158854 AZITHROMYCIN Inactive AMOXICILLIN 500 MG ORAL CAPSULE 1 by mouth Q12 hrs AMOXICILLIN 500 MG ORAL CAPSULE 687784 AMOXICILLIN Inactive NASONEX 50 MCG/ACT NASAL SUSPENSION 2 sprays each nostril every day NASONEX 50 MCG/ACT NASAL SUSPENSION 0583540 MOMETASONE FUROATE Inactive AZITHROMYCIN 250 MG ORAL TABLET 2 tablets by mouth on day one then one tablet by mouth each day for a total of 5 days AZITHROMYCIN 18063805831 No Longer Active Janes Contreras MD Active AMOXICILLIN 500 MG ORAL CAPSULE 1 by mouth Q12 hrs AMOXICILLIN 64469731026 No Longer Active Mario Carreon MD (res) Active NASONEX 50 MCG/ACT NASAL SUSPENSION 2 sprays each nostril every day MOMETASONE FUROATE 63783452022 No Longer Active Janes Contreras MD Active [...] 10:05:36 CDT Est Patient Exp Problem - 24184 Janes Contreras MD CPT-37954 [facility] 09:49:56 CDT Est Patient Exp Problem - 34327 Janes Contreras MD CPT-39117 [facility] 09:27:30 CDT Est Patient Exp Problem - 51989 Casey Kumar MD CPT-05838 [facility] 14:58:42 CDT New Patient Exp Problem - 21937 Chen Dewitt D.O. CPT-87861 [facility]
[2017-10-11] MEDS ORDERED: DIPHENHYDRAMINE HCL 25 MG CAP PO PRN (16:00)
[2017-10-11] MEDS ORDERED: ACETAMINOPHEN 1000 MG/100 ML IV PRN (16:00)
[2017-10-11] MEDS ORDERED: ONDANSETRON HCL INJ 2 MG/ML VIAL IV PRN (16:00)
[2017-10-11 16:29] VITALS: BP 106/69
[2017-10-11 16:36] VITALS: BP 106/69
[2017-10-11] MEDS ORDERED: ONDANSETRON 8 MG PO SCH (17:00)
[2017-10-11] MEDS: D5.45%NS/KCL 20MEQ 1,000 ML IV SCH ×2 (17:00→23:46)
[2017-10-11] MEDS: MORPHINE SULFATE 30 MG TAB ER PO SCH (17:00)
[2017-10-11] MEDS ORDERED: CIPROFLOXACIN 500 MG TAB PO SCH (17:00)
[2017-10-11] MEDS ORDERED: ALBUTEROL SULFATE HFA 8GM INHALATION AEROSOL INH PRN (17:00)
[2017-10-11] MEDS ORDERED: IOPAMIDOL 610MG/1ML 300 MG/ML VIAL IV ONE (17:20)
[2017-10-11] MEDS: LEVOFLOXACIN 500MG/D5W 100ML 100 ML IV SCH (17:20)
[2017-10-11] MEDS: DOCUSATE SODIUM 100 MG CAP PO SCH (17:41)
[2017-10-11] MEDS ORDERED: ONDANSETRON HCL 4 MG ORAL DISINTEGRATING TAB PO PRN (17:45)
[2017-10-11 21:00] VITALS: BP 98/65
[2017-10-11] MEDS: HYDROCODONE/APAP 10MG-325MG TAB PO PRN (21:59)
[2017-10-11 22:08] VITALS: BP 98/65
[2017-10-12] VITALS (10 sets, daily range): BP systolic 105–138; BP diastolic 59–84
[2017-10-12 05:37] LABS: BASOPHILS % 0.7 % (0.0-1.0); EOSINOPHILS % 2.9 % (0.0-6.0); HEMATOCRIT 24.7 % (34.2-44.1); HEMOGLOBIN 7.7 g/dL (12.0-16.0); LYMPHOCYTES # (AUTO) 0.6 (1.0-3.2); LYMPHOCYTES % 44.5 % (18.0-39.1); MEAN CORPUSCULAR HEMOGLOBIN 27.2 pg (28-32); MEAN CORPUSCULAR HGB CONC 31.2 g/dL (31-35); MEAN CORPUSCULAR VOLUME 87.3 fL (81-99); MONOCYTES # (AUTO) 0.5 (0.2-0.8); MONOCYTES % 33.6 % (4.4-11.3); NEUTROPHILS # (AUTO) 0.3 (2.1-6.9); NEUTROPHILS % 18.3 % (38.7-80.0); PLATELET COUNT 255 x10e3/uL (140-360); RED BLOOD COUNT 2.83 x10e6/uL (3.6-5.1)
[2017-10-12 05:52] LABS: ANION GAP 11.2 mmol/L (8-16); BLOOD UREA NITROGEN 13 mg/dL (7-26); BUN/CREATININE RATIO 17 (6-25); CARBON DIOXIDE 26 mmol/L (22-29); CHLORIDE 107 mmol/L (98-107); CREATININE, SERUM 0.76 mg/dL (0.57-1.11); EST GLOMERULAR FILTRATION RATE > 60 ML/MIN (60-); GLUCOSE 155 mg/dL (74-118); SODIUM 140 mmol/L (136-145)
[2017-10-12 05:53] LABS: POTASSIUM 4.2 mmol/L (3.5-5.1)
[2017-10-12 06:02] LABS: CALCIUM 8.5 mg/dL (8.4-10.2)
[2017-10-12 07:18] LABS: BAND NEUTROPHILS % (MANUAL) 1 %; EOSINOPHILS % (MANUAL) 1 % (0-7); LYMPHOCYTES % (MANUAL) 54 % (19-48); MONOCYTES % (MANUAL) 20 % (3.4-9.0); NEUTROPHILS % (MANUAL) 22 % (40-74); PLATELET ESTIMATE ADEQUATE; PLATELET MORPHOLOGY COMMENT NORMAL; RBC MORPHOLOGY COMMENT NORMAL
[2017-10-12 07:35] LABS: INR 1.18; PROTHROMBIN TIME 14.1 seconds (11.9-14.5)
[2017-10-12 07:36] LABS: PARTIAL THROMBOPLASTIN TIME 37.4 seconds (23.8-35.5)
[2017-10-12] MEDS: DOCUSATE SODIUM 100 MG CAP PO SCH ×2 (08:16→17:45)
[2017-10-12] MEDS: MORPHINE SULFATE 30 MG TAB ER PO SCH (08:16)
[2017-10-12] MEDS ORDERED: GABAPENTIN 300 MG CAP PO SCH (09:00)
[2017-10-12] MEDS ORDERED: MORPHINE SULFATE 60 MG PO SCH (09:00)
[2017-10-12] MEDS ORDERED: ACETAMINOPHEN 1000 MG/100 ML IV PRN (11:00)
[2017-10-12 11:20] LABS: % IRON SATURATION 16 % (15-50); IRON 37 ug/dL (50-170); TOTAL IRON BINDING CAPACITY 230 ug/dL (261-478); TRANSFERRIN 164 mg/dL (180-382)
[2017-10-12] MEDS: D5.45%NS/KCL 20MEQ 1,000 ML IV SCH ×2 (13:00→16:59)
[2017-10-12] MEDS ORDERED: ACETAMINOPHEN 325 MG TAB PO STA (13:16)
[2017-10-12] MEDS ORDERED: DIPHENHYDRAMINE HCL INJ 50 MG/ML VIAL IV ONE (13:30)
[2017-10-12] MEDS ORDERED: DEXAMETHASONE SOD PHOS 10 MG/1 ML VIAL IV ONE (13:30)
[2017-10-12] MEDS: AZTREONAM 1 GM VIAL IV SCH ×2 (13:50→22:00)
[2017-10-12] MEDS ORDERED: MIDAZOLAM HCL 2 MG/2 ML VIAL ONE ×3 (13:58→16:27)
[2017-10-12] MEDS ORDERED: LIDOCAINE HCL 2% LOCAL 20 ML VIAL ONE (13:59)
[2017-10-12] MEDS ORDERED: FENTANYL CITRATE/PF 100MCG/2 ML INJ ONE ×2 (13:59→16:18)
[2017-10-12] MEDS ORDERED: SODIUM CHLORIDE 0.9% ONE (13:59)
[2017-10-12] MEDS ORDERED: AZTREONAM (AZACTAM) 1 GM in WATER STERILE 10ML VIAL 10 ML IV SCH (14:00)
[2017-10-12] MEDS ORDERED: SODIUM CHLORIDE 0.9% 250ML 250 ML IV ONE (14:00)
[2017-10-12] MEDS: LEVOFLOXACIN 500MG/D5W 100ML 100 ML IV SCH (16:00)
[2017-10-12] MEDS: HYDROCODONE/APAP 10MG-325MG TAB PO PRN (18:00)
[2017-10-12] MEDS: GABAPENTIN 300 MG CAP PO SCH (22:00)
[2017-10-13] VITALS (8 sets, daily range): BP systolic 113–146; BP diastolic 66–88
[2017-10-13] MEDS: D5.45%NS/KCL 20MEQ 1,000 ML IV SCH (01:30)
[2017-10-13 05:13] LABS: BASOPHILS % 1.4 % (0.0-1.0); HEMATOCRIT 27.2 % (34.2-44.1); HEMOGLOBIN 8.6 g/dL (12.0-16.0); LYMPHOCYTES # (AUTO) 0.6 (1.0-3.2); LYMPHOCYTES % 38.5 % (18.0-39.1); MEAN CORPUSCULAR HEMOGLOBIN 28.2 pg (28-32); MEAN CORPUSCULAR HGB CONC 31.6 g/dL (31-35); MEAN CORPUSCULAR VOLUME 89.2 fL (81-99); MONOCYTES # (AUTO) 0.3 (0.2-0.8); MONOCYTES % 19.6 % (4.4-11.3); NEUTROPHILS # (AUTO) 0.6 (2.1-6.9); NEUTROPHILS % 40.5 % (38.7-80.0); PLATELET COUNT 274 x10e3/uL (140-360); RED BLOOD COUNT 3.05 x10e6/uL (3.6-5.1); RED CELL DISTRIBUTION WIDTH 15.7 % (11.7-14.4)
[2017-10-13] MEDS: AZTREONAM 1 GM VIAL IV SCH ×3 (05:33→22:33)
[2017-10-13 06:55] LABS: ALANINE AMINOTRANSFERASE 22 IU/L (0-55); ALBUMIN 2.6 g/dL (3.5-5.0); ALBUMIN/GLOBULIN RATIO 0.7 (0.8-2.0); ALKALINE PHOSPHATASE 63 IU/L (40-150); ANION GAP 12.8 mmol/L (8-16); BLOOD UREA NITROGEN 14 mg/dL (7-26); BUN/CREATININE RATIO 18 (6-25); CALCIUM 8.4 mg/dL (8.4-10.2); CARBON DIOXIDE 22 mmol/L (22-29); CHLORIDE 109 mmol/L (98-107); CREATININE, SERUM 0.78 mg/dL (0.57-1.11); EST GLOMERULAR FILTRATION RATE > 60 ML/MIN (60-); GLUCOSE 162 mg/dL (74-118); PHOSPHORUS 2.6 MG/DL (2.3-4.7); POTASSIUM 4.8 mmol/L (3.5-5.1); SODIUM 139 mmol/L (136-145)
[2017-10-13 07:06] LABS: MAGNESIUM 1.3 MG/DL (1.3-2.1)
[2017-10-13 07:14] LABS: THYROID STIMULATING HORMONE 0.337 uIU/mL (0.350-4.940)
[2017-10-13] MEDS: MORPHINE SULFATE 30 MG TAB ER PO SCH (07:23)
[2017-10-13] MEDS: DOCUSATE SODIUM 100 MG CAP PO SCH ×2 (07:23→15:23)
[2017-10-13 09:01] LABS: BAND NEUTROPHILS % (MANUAL) 5 %; LYMPHOCYTES % (MANUAL) 34 % (19-48); MONOCYTES % (MANUAL) 13 % (3.4-9.0); NEUTROPHILS % (MANUAL) 47 % (40-74)
[2017-10-13 09:02] LABS: PLATELET ESTIMATE ADEQUATE; PLATELET MORPHOLOGY COMMENT NORMAL; RBC MORPHOLOGY COMMENT NORMAL
[2017-10-13] MEDS: CYANOCOBALAMIN INJ 1,000 MCG/ML VIAL IM SCH (11:00)
[2017-10-13] MEDS: FILGRASTIM 300 MCG/ML VIAL SC SCH (11:53)
[2017-10-13] MEDS: LEVOFLOXACIN 500MG/D5W 100ML 100 ML IV SCH (14:47)
--- NOTE | 2017-10-13 16:27 | Consultation ---
DATE OF CONSULTATION: HEMATOLOGY/ONCOLOGY CONSULTATION ATTENDING PHYSICIAN: Dr. Mcdonald. REASON FOR CONSULTATION: Cervical cancer, pancytopenia and anemia. HISTORY OF PRESENT ILLNESS: This is Agueda Guajardo. She is 52-year-old female with past medical history of myeloproliferative disorder with thrombocytosis and leukocytosis. She had positive JAK2 mutation with this. She was also diagnosed with stage II cervical cancer. She was treated with cisplatin irradiation treatment. Two months back she was admitted with acute renal failure and anemia. At that time, workup was consistent with cervical tissue mass. She has bilateral hydronephrosis. She received bilateral nephrostomy tube. She is following [employer] oncologist. She was restarted on palliative chemo. She is currently in [facility] to remove nephrostomy tube. She had anemia and pancytopenia at admission. Her last chemo was last Saturday. She denies any fever or chills. PAST MEDICAL HISTORY: Myeloproliferative disorder, recurrent stage IV cervical cancer currently on palliative chemo. ALLERGIES: PER THE NURSING LIST. MEDICATION: List reviewed. SOCIAL HISTORY: No smoking, alcohol or drugs. FAMILY HISTORY: Reviewed, not relevant. REVIEW OF SYSTEMS: Twelve points reviewed as per HPI. PHYSICAL EXAMINATION GENERAL: Alert, awake, communicative. HEENT: Normocephalic, atraumatic. Sclerae pink, conjunctivae clear. NECK: Supple. CHEST: Decreased breath sounds in bases. CARDIOVASCULAR: Regular rate and rhythm. ABDOMEN: Soft, nontender. EXTREMITIES: No edema. LABS/IMAGING: Reviewed. ASSESSMENT AND PLAN: Patient with history of multiple medical conditions, currently in hospital to replace nephrostomy tube. She has worsening anemia and pancytopenia. 1. Anemia and pancytopenia. Patient currently on palliative chemo. She has chemo-induced pancytopenia and anemia. Recommendation blood transfusion. Will start patient on Neupogen treatment. Will monitor CBC very closely. Contact isolation. Will monitor patient closely. 2. Stage IV recurrent cervical cancer. She is currently following [facility] oncologist. She is currently on palliative chemo. 3. Bilateral hydronephrosis. Following urologist. 4. Renal failure. Patient was following rpg programmer. Will follow patient closely. Job#: [id number] EV
[2017-10-13] MEDS: HYDROCODONE/APAP 10MG-325MG TAB PO PRN (19:05)
[2017-10-13] MEDS: GABAPENTIN 300 MG CAP PO SCH (22:33)
[2017-10-14] VITALS: BP 125/81
[2017-10-14 04:00] VITALS: BP 148/95
[2017-10-14 05:36] LABS: BASOPHILS # (AUTO) 0.1 (0.0-0.1); BASOPHILS % 0.7 % (0.0-1.0); EOSINOPHILS # (AUTO) 0.1 (0.0-0.4); EOSINOPHILS % 1.3 % (0.0-6.0); HEMATOCRIT 29.2 % (34.2-44.1); HEMOGLOBIN 9.1 g/dL (12.0-16.0); LYMPHOCYTES % 11.7 % (18.0-39.1); MEAN CORPUSCULAR HEMOGLOBIN 27.5 pg (28-32); MEAN CORPUSCULAR HGB CONC 31.2 g/dL (31-35); MEAN CORPUSCULAR VOLUME 88.2 fL (81-99); MONOCYTES # (AUTO) 0.9 (0.2-0.8); MONOCYTES % 9.8 % (4.4-11.3); NEUTROPHILS # (AUTO) 6.6 (2.1-6.9); NEUTROPHILS % 75.2 % (38.7-80.0); PLATELET COUNT 302 x10e3/uL (140-360); RED BLOOD COUNT 3.31 x10e6/uL (3.6-5.1); RED CELL DISTRIBUTION WIDTH 16.2 % (11.7-14.4)
[2017-10-14 06:03] LABS: ANION GAP 11.6 mmol/L (8-16); BLOOD UREA NITROGEN 11 mg/dL (7-26); BUN/CREATININE RATIO 14 (6-25); CALCIUM 8.5 mg/dL (8.4-10.2); CARBON DIOXIDE 25 mmol/L (22-29); CHLORIDE 109 mmol/L (98-107); EST GLOMERULAR FILTRATION RATE > 60 ML/MIN (60-); GLUCOSE 75 mg/dL (74-118); POTASSIUM 3.6 mmol/L (3.5-5.1); SODIUM 142 mmol/L (136-145)
[2017-10-14] MEDS: AZTREONAM 1 GM VIAL IV SCH (06:07)
[2017-10-14] MEDS: MORPHINE SULFATE 30 MG TAB ER PO SCH (06:07)
[2017-10-14 07:40] VITALS: BP 148/95
[2017-10-14 08:02] VITALS: BP 155/84
[2017-10-14 08:18] LABS: BAND NEUTROPHILS % (MANUAL) 41 %; EOSINOPHILS % (MANUAL) 1 % (0-7); LYMPHOCYTES % (MANUAL) 10 % (19-48); MONOCYTES % (MANUAL) 8 % (3.4-9.0); NEUTROPHILS % (MANUAL) 40 % (40-74); NUCLEATED RED BLOOD CELLS 1
[2017-10-14] MEDS: CYANOCOBALAMIN INJ 1,000 MCG/ML VIAL IM SCH (08:19)
[2017-10-14] MEDS: DOCUSATE SODIUM 100 MG CAP PO SCH (08:19)
[2017-10-14] MEDS: FILGRASTIM 300 MCG/ML VIAL SC SCH (08:19)
[2017-10-14 08:20] LABS: PLATELET ESTIMATE ADEQUATE; PLATELET MORPHOLOGY COMMENT NORMAL; RBC MORPHOLOGY COMMENT ABNORMAL
[2017-10-14 08:22] LABS: ANISOCYTOSIS SLIGHT; POIKILOCYTOSIS SLIGHT
[2017-10-14 08:28] LABS: ROULEAU FEW
[2017-10-14] MEDS: HYDROCODONE/APAP 10MG-325MG TAB PO PRN (09:42)
--- NOTE | 2017-10-14 18:08 | Progress Note ---
DATE: October 14, 2017 HEMATOLOGY/ONCOLOGY PROGRESS NOTE SUBJECTIVE: Patient is seen and examined today. Patient appears comfortable. Clinical condition is improving. No worsening event noted. OBJECTIVE GENERAL: Alert, awake, communicative. HEENT: Normocephalic, atraumatic. Sclerae pink. Conjunctivae clear. NECK: Supple. CHEST: Clear to auscultation. CARDIOVASCULAR: Regular rate and rhythm. ABDOMEN: Soft. EXTREMITIES: No edema. Labs, imaging reviewed. ASSESSMENT AND PLAN: Patient with history of multiple medical conditions. I am currently following for 1. Pancytopenia. Patient had recent onset of chemo. She has received Neupogen treatment and white count improved. Will discontinue Neupogen. 2. Anemia. Patient received blood transfusion. Current hemoglobin is stable. Recommendation is to continue current care. 3. Cervical cancer. She is following [employer]GRAP[employer] oncologist, is currently on palliative chemo. 4. Nephrostomy tube. Following urologist. Job#: [id number] EV
--- NOTE | 2017-10-14 18:24 | Discharge Summary ---
PRIMARY CARE PHYSICIAN: Dr. Child CONSULTANTS: Dr. Brigette Emery and Dr. Henry Torrez. FINAL DIAGNOSES 1. Bilateral hydronephrosis with nephrostomy tube. Failed urological procedure. 2. Status post interventional radiology placement of bilateral ureteral stent and removal of nephrostomy tube. 3. Pancytopenia, severe leukopenia secondary to recent chemotherapy status post Epogen treatment. 4. B12 deficiency, treating. SUMMARY: Patient is a 52-year-old female came in with failed urological procedures for stent placement due to bilateral hydronephrosis with bilateral nephrostomy tube. Subsequently radiology consulted and they did remove the nephrostomy tube in placement of a ureteral stent bilaterally. The patient is stable. Her problem was she was seen severely neutropenic. The patient with subsequent 1 unit blood transfusion and received Epogen treatment. Her B12 level was also low as well. The patient is stable. She does have recurrent cervical cancer and ongoing chemotherapy at this time. The patient is stable. She will go home today. She will resume all home medication. Her WBC now is 8.7, hemoglobin is 9.1, hematocrit 29.2. BUN is 11, creatinine 0.8, glucose 75. The patient will resume home medication. Urine culture is negative. Follow up with her family doctor and also Dr. Henry Torrez along with her oncologist as planned. Job#: [id number] CRISTINA
--- NOTE | 2017-10-15 14:21 | Diagnostic Imaging Report ---
PROCEDURE:NEPHROSTOMY TUBE CHANGE AND PLACEMENT OF BILATERAL DOUBLE J URETERAL STENTS COMPARISON:[facility], DX, RETROGRADE PYELOGRAM, 10/11/2017, 13:42. INDICATIONS:Cervical cancer with bilateral ureteral obstruction SEDATION:5 mg Versed and 200 micrograms of Fentanyl. The patient was continuously monitored by the dedicated IR nurse. FINDINGS: Right side: Contrast was injected into the right nephrostomy catheter. This catheter was attempted to be removed over a 0.035 inch Amplatz Super Stiff wire but the wire became kinked. Catheter and the wire had to be removed. Contrast was then injected into the tract through a 5 Austrian dilator. A 0.035 inch Glidewire was then utilized to re cannulize the track. Following this the wire was advanced into the distal ureter and a 5 Austrian Kumpe catheter was placed. Probing with the Glidewire and a Kumpe catheter was successful far placement of the wire into the bladder. A new 0.035 inch Amplatz Super Stiff wire was then placed into the bladder. An 8.5 Austrian 24 cm long double-J Amplatz ureteral stent was then placed over the wire. The pusher was removed with appropriate positioning of the proximal and distal portions of the double-J stent. Sterile bandage was placed over the track into the kidney. Left side: Contrast was injected into the left nephrostomy catheter. A 0.035 inch Bentson wire was then utilized and placed into the renal pelvis and the nephrostomy catheter was removed. Contrast was injected through a 5 Austrian Kumpe catheter revealing distal ureteral obstruction. A Glidewire was then utilized for placement of the wire into the bladder. A 26 cm 8.5 Austrian Amplatz double-J ureteral stent was then placed on the left side over a 0.035 inch Amplatz superstiff wire. Proximal coil extends into the lower pole calyx. Distal aspect present within the bladder. Sterile bandage was placed over the track into the kidney. Fluoroscopy time: 19.3 minutes Total dose: 2713.2 cGycm2 CONCLUSION:Successful double-J ureteral stent placement and removal of bilateral nephrostomy catheters. Jhonny Rodriguez D.O. Dictated by: Jhonny Rodriguez D.O. on 10/15/2017 at 14:24 Electronically approved by: Jhonny Rodriguez D.O. on 10/15/2017 at 14:24
== END 2017-10-14 10:41 | disposition home or self-care (01) | DRG 693 ==
LOC: OR 11:27 → IMCU 15:49 → OBSVTOIN 10-12 10:53 → MED/SURG 10-12 19:55
PROVIDERS: ADMIT Internal Medicine; ATTEND Internal Medicine
PROC: 0T788DZ Dilation of Bilateral Ureters with Intraluminal Device, Via Natural or Artificial Opening Endoscopic (ICD-10-PCS; principal; 2017-10-12)
PROC: BT141ZZ Fluoroscopy of Kidneys, Ureters and Bladder using Low Osmolar Contrast (ICD-10-PCS; 2017-10-12)
PROC: 0TP580Z Removal of Drainage Device from Kidney, Via Natural or Artificial Opening Endoscopic (ICD-10-PCS; 2017-10-12)
PROC: 30243N1 Transfusion of Nonautologous Red Blood Cells into Central Vein, Percutaneous Approach (ICD-10-PCS; 2017-10-12)
DX: N13.1 Hydronephrosis with ureteral stricture, not elsewhere classified (principal); D61.810 Antineoplastic chemotherapy induced pancytopenia; N39.0 Urinary tract infection, site not specified; C53.9 Malignant neoplasm of cervix uteri, unspecified; T45.1X5A Adverse effect of antineoplastic and immunosuppressive drugs, initial encounter; D64.9 Anemia, unspecified; E53.8 Deficiency of other specified B group vitamins; Z87.440 Personal history of urinary (tract) infections; Z88.0 Allergy status to penicillin
CPT/HCPCS: 36415; 50430; 50435; 50693; 71046; 74420; 74470; 75984; 80048; 80053; 82607; 83540; 83735; 84100; 84443; 84466; 85025; 85610; 85730; 86850; 86900; 86920; 87086; 93005; C2625; G0378; J1100; J1200; J1442; J1580; J1956; J2001; J2250; J2270; J3420; J7040; J7050; P9016